=== PATIENT | male | born 1960 | race Two or more races ===

== ENCOUNTER 2020-05-28 09:53 | Inpatient (IN) | payer MEDICAID ==
[~2020-05-28] VITALS: Ht 177.8 cm; Wt 128.8 kg
[~2020-05-28 09:53] MED LIST: CHOL200031 PO; HYDR-4833 PO; LISI-648 PO
[2020-05-28 11:05] LABS: Basophils # (auto) 0 10 ^3/uL (0-0.2); Basophils % (auto) 0.3 % (0.0-2.0); Eosinophils # (auto) 0 10 ^3/uL (0-0.8); Eosinophils % (auto) 0.1 % (0.0-7.0); Hematocrit 48.9 % (41.0-53.0); Hemoglobin 16.3 g/dL (13.5-17.5); Lymphocytes # (auto) 1.1 10 ^3/uL (0.4-5.4); Lymphocytes % (auto) 20.9 % (10.0-50.0); Mean Corpuscular Hgb Conc. 33.2 g/dL (32.0-36.0); Mean Corpuscular Volume 84.2 fL (80.0-100.0); Monocytes # (auto) 0.6 10 ^3/uL (0-1.3); Monocytes % (auto) 11.3 % (0.0-12.0); Neutrophils # (auto) 3.5 10 ^3/uL (1.6-8.6); Neutrophils % (auto) 67.4 % (37.0-80.0); Nucleated Red Blood Cells % 0.2 %; Platelet Count (auto) 169 10^3/uL (140-450); Red Blood Cells 5.81 10^6/uL (4.5-5.90); White Blood Cell 5.2 10^3/uL (4.4-10.8)
[2020-05-28 11:39] LABS: Anion Gap 9 (5-15); Carbon Dioxide 24 mmol/L (21-32); Chloride 96 mmol/L (98-107); Glucose 91 mg/dL (74-106); Potassium 4.3 mmol/L (3.5-5.1); Sodium 129 mmol/L (136-145)
[2020-05-28 11:40] LABS: Alanine Aminotransferase 37 U/L (16-61); Albumin 3.3 g/dL (3.4-5.0); Alkaline Phosphatase 103 U/L (45-117); Aspartate Aminotransferase 37 U/L (15-37); BUN/Creatinine Ratio 18.7; Bilirubin, Total 0.7 mg/dL (0.2-1.0); Blood Urea Nitrogen 17 mg/dL (7-18); Calcium 8.7 mg/dL (8.5-10.1); GFR African American 109 mL/min; GFR Non-African American 90 mL/min; Total Protein 8.9 g/dL (6.4-8.2)
[2020-05-29] MEDS ORDERED: ONDANSETRON HCL 4 MG/2 ML VIAL IV PRN (06:15)
[2020-05-29] MEDS ORDERED: NITROGLYCERIN 0.4 MG SL TAB SL PRN (06:15)
[2020-05-29] MEDS ORDERED: ACETAMINOPHEN 325 MG TAB PO PRN (06:15)
[2020-05-29] MEDS ORDERED: MORPHINE SULF INJ 2 MG/ML SYRINGE 1ML IV PRN (06:15)
[2020-05-29] MEDS ORDERED: REMDESIVIR PER PHARMACY IV SCH (07:45)
[2020-05-29] MEDS ORDERED: ENOXAPARIN SOD 40 MG/0.4 ML SYRINGE SC SCH (10:00)
[2020-05-29] MEDS: DexAMETHasone SOD PHOS 10MG/1ML VIAL INJ IV SCH (10:00)
[2020-05-29] MEDS: cefTRIAXone 1GM/50ML D5W 50 ML IV SCH (10:00)
[2020-05-29] MEDS: AZITHROMYCIN 500MG/ 250ML 250 ML IV SCH (10:00)
[2020-05-29] MEDS: ZINC SULFATE 220mg CAP or TAB PO SCH (10:42)
[2020-05-29] MEDS: ASCORBIC ACID 500 MG TAB PO SCH (10:42)
[2020-05-29] MEDS: ASPirin 81 mg TAB PO SCH (10:42)
[2020-05-29] MEDS: FAMOTIDINE (10MG/ML) 2ML VL IV SCH ×2 (10:42→23:00)
[2020-05-29] MEDS: LISINOPRIL 10 MG TAB PO SCH (10:43)
[2020-05-29] MEDS: HYDROcodone-ACET 5/325MG TAB PO SCH ×2 (13:57→23:00)
[2020-05-29] MEDS ORDERED: REMDESIVIR 200 MG in NS 210ml LOADING DOSE ADULT IV ONE (17:00)
[2020-05-29] MEDS: ALBUTEROL SULF HFA 90MCG INH 200DOSE IN PRN (20:27)
[2020-05-30 04:39] VITALS: BP 127/69
[2020-05-30 05:00] VITALS: BP 127/69
[2020-05-30] MEDS: HYDROcodone-ACET 5/325MG TAB PO SCH ×3 (05:47→21:55)
[2020-05-30] MEDS: BUDESONIDE (INHALATION) 180 MCG IH IN SCH ×2 (06:25→21:52)
--- NOTE | 2020-05-30 06:42 | NUR ---
END OF SHIFT NOTES WILL ENDORSE CARE TO DAY SHIFT RN ,NO S/S OF DISTRESS OR SOB
[2020-05-30 08:51] VITALS: BP 133/72
[2020-05-30] MEDS: ALBUTEROL SULF HFA 90MCG INH 200DOSE IN PRN ×2 (09:06→21:52)
[2020-05-30] MEDS: AZITHROMYCIN 500MG/ 250ML 250 ML IV SCH (10:00)
[2020-05-30] MEDS: ASCORBIC ACID 500 MG TAB PO SCH (10:00)
[2020-05-30] MEDS: DexAMETHasone SOD PHOS 10MG/1ML VIAL INJ IV SCH (10:57)
[2020-05-30] MEDS: ASPirin 81 mg TAB PO SCH (10:58)
[2020-05-30] MEDS: cefTRIAXone 1GM/50ML D5W 50 ML IV SCH (10:58)
[2020-05-30] MEDS: ZINC SULFATE 220mg CAP or TAB PO SCH (10:58)
[2020-05-30] MEDS: FAMOTIDINE (10MG/ML) 2ML VL IV SCH ×2 (10:58→21:44)
[2020-05-30] MEDS: ENOXAPARIN SOD 40 MG/0.4 ML SYRINGE SC SCH (10:59)
[2020-05-30] MEDS: LISINOPRIL 10 MG TAB PO SCH (10:59)
[2020-05-30 11:45] LABS: Basophils # (auto) 0 10 ^3/uL (0-0.2); Eosinophils # (auto) 0 10 ^3/uL (0-0.8); Hematocrit 46.6 % (41.0-53.0); Hemoglobin 15.7 g/dL (13.5-17.5); Lymphocytes # (auto) 0.8 10 ^3/uL (0.4-5.4); Lymphocytes % (auto) 17.5 % (10.0-50.0); Mean Corpuscular Hemoglobin 27.8 pg (28.0-32.0); Mean Corpuscular Hgb Conc. 33.7 g/dL (32.0-36.0); Mean Corpuscular Volume 82.6 fL (80.0-100.0); Monocytes # (auto) 0.5 10 ^3/uL (0-1.3); Monocytes % (auto) 10.6 % (0.0-12.0); Neutrophils # (auto) 3.1 10 ^3/uL (1.6-8.6); Neutrophils % (auto) 70.9 % (37.0-80.0); Nucleated Red Blood Cells % 0.2 %; Platelet Count (auto) 230 10^3/uL (140-450); Red Blood Cells 5.65 10^6/uL (4.5-5.90); Red Cell Distribution Width 13.6 % (11.8-14.3); White Blood Cell 4.4 10^3/uL (4.4-10.8)
--- NOTE | 2020-05-30 12:00 | NUR ---
Called Pharmacy Called Pharmacy regarding Zithromax, bethany Marquis, will send up med.
[2020-05-30 12:04] LABS: Calcium 9.3 mg/dL (8.5-10.1); Potassium 3.9 mmol/L (3.5-5.1)
[2020-05-30 12:14] LABS: Bilirubin, Total 0.4 mg/dL (0.2-1.0); CRP High Sensitivity 5.44 mg/dL (< 0.3); Total Protein 8.3 g/dL (6.4-8.2)
[2020-05-30 12:41] LABS: Urine Bacteria NONE SEEN /hpf (None Seen); Urine Blood Negative /uL (Negative); Urine Mucus FEW (None Seen); Urine Specific Gravity 1.021 (1.001-1.035); Urine WBC 1 /hpf (0 - 3)
[2020-05-30 12:56] VITALS: BP_SYST 115; BP_SYST 128; BP_DIAS 71; BP_DIAS 74
[2020-05-30 16:43] VITALS: BP 128/76
[2020-05-30] MEDS ORDERED: REMDESIVIR 100 MG in SODIUM CHL 0.9% 250 ML IV SCH (17:00)
--- NOTE | 2020-05-30 19:11 | NUR ---
Closing Shift Note Endorsed care to Jodi BURRIS. Endorsed Remdesivir administration due to medication arriving at 1857.
--- NOTE | 2020-05-30 19:20 | NUR ---
Opening shift note Assumed care of patient from day shift RNQiana. Was informed of medication that had arrived late for patient, will administer per EMAR. Patient A&Ox4, respirations even and non-labored without s/s of distress at this time. VS: DE 79, 128/75, RR 20, 94% O2 saturation. Discussed POC with patient who verbalized understanding. Safety precautions in placed, bed in lowest locked position with 2 side rails up. Call light within reach. Will continue to monitor Q1hr and PRN.
--- NOTE | 2020-05-30 21:45 | NUR ---
Remdesivir infused VS: T 97.7, MA 75, RR 20, 92%, 130/73. Patient without s/s of distress at this time.
[2020-05-30 22:00] VITALS: BP 130/73
[2020-05-31 05:00] VITALS: BP 134/74
[2020-05-31 05:42] LABS: Basophils # (auto) 0 10 ^3/uL (0-0.2); Basophils % (auto) 0.4 % (0.0-2.0); Eosinophils # (auto) 0 10 ^3/uL (0-0.8); Hematocrit 45.2 % (41.0-53.0); Hemoglobin 15.4 g/dL (13.5-17.5); Lymphocytes # (auto) 0.7 10 ^3/uL (0.4-5.4); Lymphocytes % (auto) 10.1 % (10.0-50.0); Mean Corpuscular Hemoglobin 27.8 pg (28.0-32.0); Mean Corpuscular Volume 81.9 fL (80.0-100.0); Monocytes # (auto) 0.6 10 ^3/uL (0-1.3); Monocytes % (auto) 8.5 % (0.0-12.0); Neutrophils # (auto) 5.4 10 ^3/uL (1.6-8.6); Nucleated Red Blood Cells % 0.5 %; Platelet Count (auto) 222 10^3/uL (140-450); Red Blood Cells 5.52 10^6/uL (4.5-5.90); Red Cell Distribution Width 13.8 % (11.8-14.3); White Blood Cell 6.7 10^3/uL (4.4-10.8)
[2020-05-31] MEDS: HYDROcodone-ACET 5/325MG TAB PO SCH ×2 (06:00→14:00)
[2020-05-31 06:02] LABS: Potassium 4.4 mmol/L (3.5-5.1)
[2020-05-31 06:14] LABS: BUN/Creatinine Ratio 26.1; Bilirubin, Total 0.4 mg/dL (0.2-1.0); CRP High Sensitivity 2.16 mg/dL (< 0.3); Total Protein 7.9 g/dL (6.4-8.2)
--- NOTE | 2020-05-31 07:16 | NUR ---
Opening Shift Note Assumed patient care from NOC RNJodi. Safety precautions in place, no signs of distress at this time. Will continue to monitor q1hr and PRN.
--- NOTE | 2020-05-31 07:38 | NUR ---
Closing shift note Patient resting without s/s of distress at this time. Endorsed care to day shift RNQiana.
[2020-05-31 09:00] VITALS: BP 126/76
[2020-05-31] MEDS: DexAMETHasone SOD PHOS 10MG/1ML VIAL INJ IV SCH (09:46)
[2020-05-31] MEDS: FAMOTIDINE (10MG/ML) 2ML VL IV SCH (09:46)
[2020-05-31] MEDS: ASPirin 81 mg TAB PO SCH (09:52)
[2020-05-31] MEDS: cefTRIAXone 1GM/50ML D5W 50 ML IV SCH (09:52)
[2020-05-31] MEDS: ZINC SULFATE 220mg CAP or TAB PO SCH (09:52)
[2020-05-31] MEDS: ENOXAPARIN SOD 40 MG/0.4 ML SYRINGE SC SCH (09:53)
[2020-05-31] MEDS: LISINOPRIL 10 MG TAB PO SCH (09:53)
[2020-05-31] MEDS: ASCORBIC ACID 500 MG TAB PO SCH (09:53)
--- NOTE | 2020-05-31 10:40 | NUR ---
Patient Patient at station requesting to be discharged. Per Patient, would like to be discharged with discharge packet prescriptions at this time. Patient made aware that discharge orders have not been placed at this time and he would have to wait for MD to place orders and home medications. Patient verbalized understanding but is insists on being discharged as early as possible.
[2020-05-31] MEDS: AZITHROMYCIN 500MG/ 250ML 250 ML IV SCH (11:00)
--- NOTE | 2020-05-31 11:15 | NUR ---
Nutrition Assessment Est energy needs 4764-2025 kcal (11-14 kcal/kg BW 128.8kg) Est protein needs 75-98g (1-1.3g/kg IBW 75g) Will monitor and reassess prn. Addendum: 05/31/20 at [address] Amended: Links added.
[2020-05-31] MEDS ORDERED: ZINC100T5 PO (11:24)
[2020-05-31] MEDS ORDERED: FAMO20TA10 PO (11:24)
[2020-05-31] MEDS ORDERED: AZIT500T66 PO (11:24)
[2020-05-31] MEDS ORDERED: ALBUAER3 IN (11:24)
[2020-05-31] MEDS ORDERED: ASPI81CH43 PO (11:24)
[2020-05-31] MEDS ORDERED: CHOL200031 PO (11:24)
[2020-05-31] MEDS ORDERED: PRED20TA2 PO (11:24)
--- NOTE | 2020-05-31 11:30 | NUR ---
Called Received call from Dr. Cano. updated on patient status; notified that patient is currently 96% on room air and is denying shortness of breath on exertion. Per Dr. Cano, patient to be discharged after one more dose of Remdesivir. Addendum: 05/31/20 at 1154 by KEVIN GARCIA RN RN Dr. Cano aware of patient discharge request.
[2020-05-31 12:01] VITALS: BP 126/76
[2020-05-31] MEDS ORDERED: REMDESIVIR 100 MG in SODIUM CHL 0.9% 250 ML IV SCH (12:30)
--- NOTE | 2020-05-31 12:50 | NUR ---
Remdesivir Medication Administered Starting BP 143/79 HR 71 15 minute Reassessment 139/80 HR 71 End: 138/81 HR 74
[2020-05-31 13:00] VITALS: BP 131/76
--- NOTE | 2020-05-31 15:00 | NUR ---
Discharge Discharge instructions given as ordered. Encourage to follow up with PMD as instructed. All questions and concerns addressed. Patient verbalized understanding. Medication reconciliation form completed and copy given to patient. IV removed with catheter intact, pressure dressing applied. Patient taken to vehicle via wheelchair with all personal belongings, accompanied by staff. No distress noted at time of departure. Patient discharged with all discharge packets and instructions including information for prescription strip picker. Patient verbalized understanding of all teaching.
== END 2020-05-31 15:00 | disposition home or self-care (01) | DRG 137 ==
LOC: ER 09:53 → OVERFLOW 09:54 → CENTRAL 05-30 04:23
PROVIDERS: ADMIT Internal Medicine; ATTEND Internal Medicine
PROC: XW033E5 Introduction of Remdesivir Anti-infective into Peripheral Vein, Percutaneous Approach, New Technology Group 5 (ICD-10-PCS; principal; 2020-05-29)
DX: U07.1 COVID-19 (principal); J96.01 Acute respiratory failure with hypoxia; J12.89 Other viral pneumonia; J44.9 Chronic obstructive pulmonary disease, unspecified; I10 Essential (primary) hypertension; J91.8 Pleural effusion in other conditions classified elsewhere; E66.01 Morbid (severe) obesity due to excess calories; F17.210 Nicotine dependence, cigarettes, uncomplicated; Z68.41 Body mass index [BMI] 40.0-44.9, adult; Z82.49 Family history of ischemic heart disease and other diseases of the circulatory system; J40 Bronchitis, not specified as acute or chronic
CPT/HCPCS: 36415; 36600; 71045; 71046; 80053; 81001; 82728; 82805; 85025; 85379; 86141; 87426; 93970; 94640; G0378; J0696; J1100; J3490

== ENCOUNTER → 2020-10-28 | Outpatient (CLI) | payer MEDICAID ==
[~2020-10-28] MED LIST changes: +ALBUAER3 IN; +ASPI81CH43 PO; +AZIT500T66 PO; +FAMO20TA10 PO; -LISI-648 PO; +LISI-716 PO; +PRED20TA2 PO; +ZINC100T5 PO
== END | disposition home or self-care (01) ==
LOC: LAB 10:44
PROVIDERS: ATTEND Internal Medicine Pulmonary Disease
DX: Z01.812 Encounter for preprocedural laboratory examination (principal); Z20.822 Contact with and (suspected) exposure to COVID-19
CPT/HCPCS: 36415; 87426

== ENCOUNTER 2020-10-29 10:00 | Outpatient (CLI) | payer MEDICAID ==
[2020-10-29] MEDS ORDERED: ALBUTEROL SULF 2.5 MG/0.5ML(0.5%) NEB SOLN ONE (10:08)
== END 2020-10-29 11:30 | disposition home or self-care (01) ==
LOC: RT 10:00
PROVIDERS: ATTEND Internal Medicine Pulmonary Disease
DX: J44.9 Chronic obstructive pulmonary disease, unspecified (principal); J98.8 Other specified respiratory disorders
CPT/HCPCS: 94060; 94727; 94729

== ENCOUNTER 2022-08-27 12:13 | Inpatient (IN) | payer MEDICAID ==
[~2022-08-27] VITALS: Ht 180.3 cm; Wt 147.1 kg
[2022-08-27] MEDS ORDERED: IPRATROPIUM BROM 0.5 MG/2.5ML INH SOL HHN ONE (13:15)
[2022-08-27] MEDS ORDERED: methylPREDNISolone SOD SUCC 125 MG/2 ML VL IV ONE (13:15)
[2022-08-27] MEDS ORDERED: ALBUTEROL SULF 2.5 MG/0.5ML(0.5%) NEB SOLN HHN ONE (13:15)
[2022-08-27] MEDS ORDERED: ALBUTEROL MEDNEB 2.5 mg/3ml NEB ONE ×2 (13:16→13:17)
[2022-08-27] MEDS ORDERED: IPRATROPIUM BROM 0.5 MG/2.5ML INH SOL ONE (13:17)
[2022-08-27 14:08] LABS: Basophils # (auto) 0 10 ^3/uL (0-0.2); Basophils % (auto) 0.2 % (0.0-2.0); Eosinophils # (auto) 0.1 10 ^3/uL (0-0.8); Eosinophils % (auto) 0.6 % (0.0-7.0); Hematocrit 44.8 % (41.0-53.0); Hemoglobin 15.1 g/dL (13.5-17.5); Lymphocytes # (auto) 1.3 10 ^3/uL (0.4-5.4); Lymphocytes % (auto) 11.4 % (10.0-50.0); Mean Corpuscular Hemoglobin 27.6 pg (28.0-32.0); Mean Corpuscular Hgb Conc. 33.6 g/dL (32.0-36.0); Monocytes # (auto) 0.8 10 ^3/uL (0-1.3); Monocytes % (auto) 7.1 % (0.0-12.0); Neutrophils # (auto) 9.3 10 ^3/uL (1.6-8.6); Neutrophils % (auto) 80.7 % (37.0-80.0); Nucleated Red Blood Cells % 0.2 %; Red Blood Cells 5.47 10^6/uL (4.5-5.90); Red Cell Distribution Width 14.3 % (11.8-14.3); White Blood Cell 11.5 10^3/uL (4.4-10.8)
[2022-08-27 14:27] LABS: Albumin 3.5 g/dL (3.4-5.0); Calcium 8.7 mg/dL (8.5-10.1); Magnesium 2.2 mg/dL (1.6-2.6)
[2022-08-27] MEDS ORDERED: FUROSEMIDE 40 MG/4 ML VIAL IV ONE (14:30)
[2022-08-27 14:31] LABS: Bilirubin, Total 0.6 mg/dL (0.2-1.0); Total Protein 7.1 g/dL (6.4-8.2)
[2022-08-27 15:48] LABS: BUN/Creatinine Ratio 16.4
[2022-08-27] MEDS ORDERED: NITROGLYCERIN 0.4 MG SL TAB SL PRN (19:15)
[2022-08-27] MEDS ORDERED: HYDROcodone-ACET 5/325MG TAB PO PRN (19:15)
[2022-08-27] MEDS ORDERED: DOCUSATE SOD 100 MG CAP PO PRN (19:15)
[2022-08-27] MEDS ORDERED: ACETAMINOPHEN 325 MG TAB PO PRN (19:15)
[2022-08-27] MEDS ORDERED: ONDANSETRON HCL 4 MG/2 ML VIAL IV PRN (19:15)
[2022-08-27] MEDS ORDERED: ALBUTEROL SULF 2.5 MG/0.5ML(0.5%) NEB SOLN NEB PRN (19:15)
[2022-08-27] MEDS ORDERED: MORPHINE SULFATE INJ 2 MG/ml SYRG IV PRN (19:15)
[2022-08-27] MEDS ORDERED: ALBUTEROL SULF HFA 90MCG INH 200DOSE IN PRN (19:15)
[2022-08-27] MEDS ORDERED: IPRATROPIUM BROM 0.5 MG/2.5ML INH SOL NEB PRN (19:15)
[2022-08-27] MEDS: methylPREDNISolone SOD SUCC 40 MG/ML VL IV SCH (22:00)
[2022-08-27 23:01] VITALS: BP 151/85
[2022-08-28] MEDS: SODIUM CHLOR 0.9% PF (SALINE LOCK) 10ML VIAL/SYR IV SCH ×4 (03:03→21:23)
[2022-08-28] MEDS: methylPREDNISolone SOD SUCC 40 MG/ML VL IV SCH ×2 (03:03→09:14)
[2022-08-28 05:30] VITALS: BP 122/58
[2022-08-28 07:30] VITALS: BP 131/79
[2022-08-28] MEDS ORDERED: LISI20TA28 PO (08:26)
[2022-08-28] MEDS ORDERED: METH5TAB2 PO (08:26)
[2022-08-28 09:00] VITALS: BP 112/70
[2022-08-28] MEDS: PANTOPRAZOLE 40 MG/10 ML VIAL INJ IV SCH (09:13)
[2022-08-28] MEDS: ASPirin 81 mg TAB PO SCH (09:15)
[2022-08-28] MEDS: FUROSEMIDE 40 MG TAB PO SCH (09:17)
[2022-08-28] MEDS: METHADONE HCL 10 MG TAB PO SCH (09:19)
[2022-08-28] MEDS: CHOLECALCIFEROL (VITD3) 2,000 UNIT CAP/TAB PO SCH (09:20)
[2022-08-28] MEDS: LISINOPRIL 10 MG TAB PO SCH (09:21)
[2022-08-28] MEDS: ZINC GLUCONATE 100 MG PO SCH (09:22)
[2022-08-28 10:21] LABS: Hematocrit 45.3 % (41.0-53.0); Hemoglobin 15.5 g/dL (13.5-17.5); Mean Corpuscular Hemoglobin 28.1 pg (28.0-32.0); Mean Corpuscular Hgb Conc. 34.2 g/dL (32.0-36.0); Mean Corpuscular Volume 82.2 fL (80.0-100.0); Red Blood Cells 5.51 10^6/uL (4.5-5.90); Red Cell Distribution Width 14.2 % (11.8-14.3); White Blood Cell 9.7 10^3/uL (4.4-10.8)
[2022-08-28 10:23] LABS: Band Neutrophils % (manual) 0; Basophils % (manual) 0 (0.0-2.0); Eosinophils % (manual) 0 (0-7); Metamyelocytes % 0; Monocytes % (manual) 0 (0-12); Myelocytes % 0; Promyelocytes % 0
[2022-08-28 10:24] LABS: Blast Cells 0; Reactive Lymphocytes 0
[2022-08-28 10:37] LABS: Albumin 3.3 g/dL (3.4-5.0); Calcium 9.1 mg/dL (8.5-10.1); Potassium 4.2 mmol/L (3.5-5.1)
[2022-08-28 10:42] LABS: Bilirubin, Total 0.5 mg/dL (0.2-1.0); Total Protein 8.2 g/dL (6.4-8.2)
[2022-08-28 11:17] LABS: Lymphocytes % (manual) 7 (10.0-50.0)
[2022-08-28 13:00] VITALS: BP 136/69
[2022-08-28 17:00] VITALS: BP_SYST 117; BP_SYST 124; BP_DIAS 62; BP_DIAS 76
[2022-08-28] MEDS: methylPREDNISolone SOD SUCC 125 MG/2 ML VL IV SCH (21:23)
[2022-08-28 22:00] VITALS: BP 126/67
[2022-08-29 05:00] VITALS: BP 137/75
[2022-08-29] MEDS: SODIUM CHLOR 0.9% PF (SALINE LOCK) 10ML VIAL/SYR IV SCH ×3 (05:30→22:13)
[2022-08-29] MEDS: methylPREDNISolone SOD SUCC 125 MG/2 ML VL IV SCH ×3 (05:30→22:13)
[2022-08-29 07:53] LABS: Urine Bacteria NONE SEEN /hpf (None Seen); Urine Blood Negative /uL (Negative); Urine Mucus FEW (None Seen); Urine Specific Gravity 1.028 (1.001-1.035); Urine WBC <1 /hpf (0 - 3)
[2022-08-29 09:00] VITALS: BP 127/66
[2022-08-29] MEDS: ZINC GLUCONATE 100 MG PO SCH (10:00)
[2022-08-29] MEDS: ASPirin 81 mg TAB PO SCH (10:58)
[2022-08-29] MEDS: PANTOPRAZOLE 40 MG/10 ML VIAL INJ IV SCH (10:58)
[2022-08-29] MEDS: FUROSEMIDE 40 MG TAB PO SCH (10:59)
[2022-08-29] MEDS: CHOLECALCIFEROL (VITD3) 2,000 UNIT CAP/TAB PO SCH (11:01)
[2022-08-29] MEDS: METHADONE HCL 10 MG TAB PO SCH (11:01)
[2022-08-29] MEDS: LISINOPRIL 10 MG TAB PO SCH (11:02)
[2022-08-29 13:01] VITALS: BP 141/79
[2022-08-29] MEDS: IPRATROPIUM BROM 0.5 MG/2.5ML INH SOL NEB SCH ×3 (14:33→22:48)
[2022-08-29] MEDS: ALBUTEROL SULF 2.5 MG/0.5ML(0.5%) NEB SOLN NEB SCH ×3 (14:33→22:48)
[2022-08-29 17:00] VITALS: BP 156/75
[2022-08-29 22:00] VITALS: BP 121/68
[2022-08-30 05:00] VITALS: BP 114/57
[2022-08-30] MEDS: methylPREDNISolone SOD SUCC 125 MG/2 ML VL IV SCH ×2 (06:03→14:00)
[2022-08-30] MEDS: SODIUM CHLOR 0.9% PF (SALINE LOCK) 10ML VIAL/SYR IV SCH ×2 (06:07→14:00)
[2022-08-30] MEDS ORDERED: DEXTROSE (50%) 50ML SYRG IV PRN (06:30)
[2022-08-30] MEDS: ALBUTEROL SULF 2.5 MG/0.5ML(0.5%) NEB SOLN NEB SCH ×3 (06:46→14:45)
[2022-08-30] MEDS: IPRATROPIUM BROM 0.5 MG/2.5ML INH SOL NEB SCH ×3 (06:46→14:45)
[2022-08-30] MEDS: InsuLIN REG 1unit/0.01ml Soln (100units/ml) SC SCH ×2 (06:54→11:30)
[2022-08-30] MEDS: ACCU-CHEK COMFORT CURVE STRIP VI SCH ×2 (07:12→11:29)
[2022-08-30 07:55] LABS: BUN/Creatinine Ratio 26.8; Calcium 9.2 mg/dL (8.5-10.1); Potassium 4.5 mmol/L (3.5-5.1)
[2022-08-30 08:00] VITALS: BP 150/82
[2022-08-30] MEDS: ZINC GLUCONATE 100 MG PO SCH (09:00)
[2022-08-30] MEDS: ASPirin 81 mg TAB PO SCH (09:02)
[2022-08-30] MEDS: PANTOPRAZOLE 40 MG/10 ML VIAL INJ IV SCH (09:02)
[2022-08-30] MEDS: CHOLECALCIFEROL (VITD3) 2,000 UNIT CAP/TAB PO SCH (09:02)
[2022-08-30] MEDS: FUROSEMIDE 40 MG TAB PO SCH (09:03)
[2022-08-30] MEDS: LISINOPRIL 10 MG TAB PO SCH (09:03)
[2022-08-30] MEDS: METHADONE HCL 10 MG TAB PO SCH (09:04)
[2022-08-30 12:00] VITALS: BP 155/91
[2022-08-30] MEDS ORDERED: METH4PAK PO (12:39)
[2022-08-30] MEDS ORDERED: ALBUAER3 IN (12:39)
[2022-08-30] MEDS ORDERED: ALB5IS NEB (12:39)
[2022-08-30] MEDS ORDERED: DOXY-332 PO (12:39)
[2022-08-30] MEDS ORDERED: IPR002IS NEB (12:39)
== END 2022-08-30 15:45 | disposition home or self-care (01) | DRG 140 ==
LOC: ER 12:13 → TELE 19:15 → TELE-EAST 08-28 08:00
PROVIDERS: ADMIT Nurse Practitioner Family; ATTEND Internal Medicine
DX: J44.1 Chronic obstructive pulmonary disease with (acute) exacerbation (principal); E87.70 Fluid overload, unspecified; G89.4 Chronic pain syndrome; I10 Essential (primary) hypertension; Z20.822 Contact with and (suspected) exposure to COVID-19; R09.89 Other specified symptoms and signs involving the circulatory and respiratory systems; Z82.49 Family history of ischemic heart disease and other diseases of the circulatory system; Z87.891 Personal history of nicotine dependence; Z90.49 Acquired absence of other specified parts of digestive tract
CPT/HCPCS: 36415; 71046; 80048; 80053; 81001; 82962; 83605; 83735; 83880; 84484; 85007; 85025; 85027; 85379; 87040; 87426; 94640; 94644; 96374; 96375; C9113; G0378; J1815

== ENCOUNTER 2022-09-12 10:29 | Inpatient (IN) | payer MEDICAID ==
[~2022-09-12] VITALS: Ht 180.3 cm; Wt 76.0 kg
[~2022-09-12 10:29] MED LIST changes: +ALB5IS NEB; -AZIT500T66 PO; +DOXY-332 PO; +IPR002IS NEB; -LISI-716 PO; +LISI20TA28 PO; +METH4PAK PO; +METH5TAB2 PO; -PRED20TA2 PO
[2022-09-12] MEDS ORDERED: HYDROcodone-ACET 10/325MG TAB PO ONE (10:45)
[2022-09-12 11:31] LABS: Basophils # (auto) 0.1 10 ^3/uL (0-0.2); Basophils % (auto) 0.8 % (0.0-2.0); Eosinophils # (auto) 0.1 10 ^3/uL (0-0.8); Eosinophils % (auto) 0.7 % (0.0-7.0); Hematocrit 44.5 % (41.0-53.0); Hemoglobin 14.9 g/dL (13.5-17.5); Lymphocytes # (auto) 1.8 10 ^3/uL (0.4-5.4); Lymphocytes % (auto) 23.7 % (10.0-50.0); Mean Corpuscular Hemoglobin 27.8 pg (28.0-32.0); Mean Corpuscular Hgb Conc. 33.5 g/dL (32.0-36.0); Monocytes # (auto) 0.6 10 ^3/uL (0-1.3); Monocytes % (auto) 7.4 % (0.0-12.0); Neutrophils # (auto) 5.3 10 ^3/uL (1.6-8.6); Neutrophils % (auto) 67.4 % (37.0-80.0); Nucleated Red Blood Cells % 0.1 %; Red Blood Cells 5.36 10^6/uL (4.5-5.90); White Blood Cell 7.8 10^3/uL (4.4-10.8)
[2022-09-12 11:44] LABS: Urine WBC None Seen /hpf (0 - 3)
[2022-09-12 11:55] LABS: Urine Bacteria NONE SEEN /hpf (None Seen); Urine Blood Negative /uL (Negative); Urine Mucus FEW (None Seen); Urine Specific Gravity 1.023 (1.001-1.035)
[2022-09-12] MEDS ORDERED: SODIUM CHLORIDE 0.9% 1,000 ML IV ONE (12:00)
[2022-09-12 12:08] LABS: Potassium 3.9 mmol/L (3.5-5.1)
[2022-09-12 12:17] LABS: Albumin 2.9 g/dL (3.4-5.0); BUN/Creatinine Ratio 20.7; Bilirubin, Total 0.6 mg/dL (0.2-1.0); Calcium 8.6 mg/dL (8.5-10.1); Total Protein 6.8 g/dL (6.4-8.2)
[2022-09-12] MEDS ORDERED: ONDANSETRON HCL 4 MG/2 ML VIAL IV PRN (15:30)
[2022-09-12] MEDS ORDERED: NITROGLYCERIN 0.4 MG SL TAB SL PRN (15:30)
[2022-09-12] MEDS ORDERED: ACETAMINOPHEN 325 MG TAB PO PRN (15:30)
[2022-09-12] MEDS ORDERED: HYDROcodone-ACET 5/325MG TAB PO PRN (15:30)
[2022-09-12] MEDS ORDERED: MORPHINE SULFATE INJ 2 MG/ml SYRG IV PRN ×2 (15:30)
[2022-09-12] MEDS ORDERED: hydrALAZINE HCL 20 MG/ML VL IV PRN (15:45)
[2022-09-12] MEDS ORDERED: ALBUTEROL SULF 2.5 MG/0.5ML(0.5%) NEB SOLN NEB PRN (15:45)
[2022-09-12] MEDS ORDERED: PANTOPRAZOLE 40 MG/10 ML VIAL INJ IV ONE (15:45)
[2022-09-12] MEDS ORDERED: IPRATROPIUM BROM 0.5 MG/2.5ML INH SOL NEB PRN (15:45)
[2022-09-12 16:11] LABS: Cholesterol 168 mg/dL (< 200)
[2022-09-12 16:14] LABS: HDL Cholesterol 44 mg/dL (40-59); LDL Cholesterol 107 mg/dL (< 100); Triglycerides 135 mg/dL (< 150)
[2022-09-12] MEDS ORDERED: BENZOCAINE (DENTAL) 20 % SPRAY 60ML MT ONE (17:51)
[2022-09-12] MEDS: ALBUTEROL SULF 2.5 MG/0.5ML(0.5%) NEB SOLN NEB SCH (18:40)
[2022-09-12] MEDS: IPRATROPIUM BROM 0.5 MG/2.5ML INH SOL NEB SCH (18:40)
[2022-09-12 20:47] VITALS: BP 147/77
[2022-09-12 22:30] VITALS: BP 113/68
[2022-09-12] MEDS: LACTATED RINGER'S 1,000 ML IV SCH (23:35)
[2022-09-13] MEDS: LACTATED RINGER'S 1,000 ML IV SCH ×2 (01:45→14:15)
[2022-09-13 05:00] VITALS: BP 133/77
[2022-09-13] MEDS: IPRATROPIUM BROM 0.5 MG/2.5ML INH SOL NEB SCH ×3 (05:53→19:03)
[2022-09-13] MEDS: ALBUTEROL SULF 2.5 MG/0.5ML(0.5%) NEB SOLN NEB SCH ×3 (05:53→19:02)
[2022-09-13 06:54] LABS: Basophils # (auto) 0 10 ^3/uL (0-0.2); Basophils % (auto) 0.6 % (0.0-2.0); Eosinophils # (auto) 0 10 ^3/uL (0-0.8); Eosinophils % (auto) 0.9 % (0.0-7.0); Hematocrit 37.7 % (41.0-53.0); Hemoglobin 12.5 g/dL (13.5-17.5); Lymphocytes # (auto) 1.4 10 ^3/uL (0.4-5.4); Lymphocytes % (auto) 29.7 % (10.0-50.0); Mean Corpuscular Hemoglobin 27.6 pg (28.0-32.0); Mean Corpuscular Hgb Conc. 33.2 g/dL (32.0-36.0); Mean Corpuscular Volume 83.3 fL (80.0-100.0); Monocytes # (auto) 0.5 10 ^3/uL (0-1.3); Monocytes % (auto) 9.4 % (0.0-12.0); Neutrophils # (auto) 2.8 10 ^3/uL (1.6-8.6); Neutrophils % (auto) 59.4 % (37.0-80.0); Red Blood Cells 4.52 10^6/uL (4.5-5.90); Red Cell Distribution Width 14.1 % (11.8-14.3); White Blood Cell 4.8 10^3/uL (4.4-10.8)
[2022-09-13 07:06] LABS: Albumin 2.3 g/dL (3.4-5.0); Calcium 7.9 mg/dL (8.5-10.1); Potassium 3.9 mmol/L (3.5-5.1)
[2022-09-13 07:10] LABS: Bilirubin, Total 0.7 mg/dL (0.2-1.0); Total Protein 5.2 g/dL (6.4-8.2)
[2022-09-13 08:35] VITALS: BP 149/70
[2022-09-13] MEDS: PANTOPRAZOLE 40 MG/10 ML VIAL INJ IV SCH (09:24)
[2022-09-13] MEDS ORDERED: METHADONE HCL PO SCH (10:00)
[2022-09-13] MEDS ORDERED: DEXTROSE (50%) 50ML SYRG IV PRN (12:15)
[2022-09-13 12:50] VITALS: BP 118/64
[2022-09-13] MEDS ORDERED: METHADONE HCL 10 MG TAB PO ONE (13:30)
[2022-09-13] MEDS: LISINOPRIL 20 MG TAB PO SCH (14:14)
[2022-09-13] MEDS ORDERED: OPTISON 3ml Vial for INJ IV ONE (15:09)
[2022-09-13 17:38] VITALS: BP 132/71
[2022-09-13] MEDS: InsuLIN REG 1unit/0.01ml Soln (100units/ml) SC SCH ×2 (18:00→23:56)
[2022-09-13] MEDS: ACCU-CHEK COMFORT CURVE STRIP VI SCH ×2 (18:25→23:56)
[2022-09-13 22:00] VITALS: BP 106/58
[2022-09-14] MEDS: LACTATED RINGER'S 1,000 ML IV SCH (04:55)
[2022-09-14 05:00] VITALS: BP 149/77
[2022-09-14] MEDS: InsuLIN REG 1unit/0.01ml Soln (100units/ml) SC SCH ×2 (06:00→12:00)
[2022-09-14] MEDS: ACCU-CHEK COMFORT CURVE STRIP VI SCH ×2 (06:00→12:07)
[2022-09-14] MEDS: ALBUTEROL SULF 2.5 MG/0.5ML(0.5%) NEB SOLN NEB SCH ×3 (06:37→11:34)
[2022-09-14] MEDS: IPRATROPIUM BROM 0.5 MG/2.5ML INH SOL NEB SCH ×3 (06:38→11:34)
[2022-09-14 06:58] LABS: Anion Gap 7 (5-15); BUN/Creatinine Ratio 13.3 (10.0-20.0); Blood Urea Nitrogen 10 mg/dL (7-18); Calcium 8.3 mg/dL (8.5-10.1); Carbon Dioxide 22 mmol/L (21-32); Chloride 109 mmol/L (98-107); GFR African American 135 mL/min; GFR Non-African American 112 mL/min; Glucose 98 mg/dL (74-106); Potassium 4.5 mmol/L (3.5-5.1); Sodium 138 mmol/L (136-145)
[2022-09-14 08:00] VITALS: BP 102/55
[2022-09-14 08:27] LABS: Basophils # (auto) 0 10 ^3/uL (0-0.2); Basophils % (auto) 0.6 % (0.0-2.0); Eosinophils # (auto) 0.1 10 ^3/uL (0-0.8); Eosinophils % (auto) 1.2 % (0.0-7.0); Hematocrit 39.3 % (41.0-53.0); Hemoglobin 13.1 g/dL (13.5-17.5); Lymphocytes # (auto) 1.4 10 ^3/uL (0.4-5.4); Lymphocytes % (auto) 30.3 % (10.0-50.0); Mean Corpuscular Hemoglobin 27.9 pg (28.0-32.0); Mean Corpuscular Hgb Conc. 33.3 g/dL (32.0-36.0); Mean Corpuscular Volume 83.9 fL (80.0-100.0); Monocytes # (auto) 0.5 10 ^3/uL (0-1.3); Neutrophils # (auto) 2.7 10 ^3/uL (1.6-8.6); Neutrophils % (auto) 56.9 % (37.0-80.0); Nucleated Red Blood Cells % 0.1 %; Red Blood Cells 4.69 10^6/uL (4.5-5.90); Red Cell Distribution Width 14.2 % (11.8-14.3); White Blood Cell 4.7 10^3/uL (4.4-10.8)
[2022-09-14] MEDS ORDERED: FUROSEMIDE 20 MG/2 ML VIAL IV SCH (10:00)
[2022-09-14] MEDS ORDERED: METHADONE HCL 10 MG TAB PO SCH (10:00)
[2022-09-14] MEDS: PANTOPRAZOLE 40 MG/10 ML VIAL INJ IV SCH (10:09)
[2022-09-14] MEDS: LISINOPRIL 20 MG TAB PO SCH (10:10)
[2022-09-14] MEDS ORDERED: DOCU-94 PO (10:55)
[2022-09-14 13:31] VITALS: BP 136/90
== END 2022-09-14 14:05 | disposition home or self-care (01) | DRG 254 ==
LOC: ER 10:29 → OVERFLOW 15:29 → EAST 23:10
PROVIDERS: ADMIT Registered Nurse; ATTEND Internal Medicine
DX: K43.6 Other and unspecified ventral hernia with obstruction, without gangrene (principal); I50.33 Acute on chronic diastolic (congestive) heart failure; E11.9 Type 2 diabetes mellitus without complications; E66.01 Morbid (severe) obesity due to excess calories; I11.0 Hypertensive heart disease with heart failure; J44.9 Chronic obstructive pulmonary disease, unspecified; Z53.29 Procedure and treatment not carried out because of patient's decision for other reasons; Z20.822 Contact with and (suspected) exposure to COVID-19; Z68.23 Body mass index [BMI] 23.0-23.9, adult; Z82.3 Family history of stroke; Z90.49 Acquired absence of other specified parts of digestive tract; Z82.49 Family history of ischemic heart disease and other diseases of the circulatory system; Z87.891 Personal history of nicotine dependence; Z86.16 Personal history of COVID-19; Z71.3 Dietary counseling and surveillance
CPT/HCPCS: 36415; 71045; 74176; 80048; 80053; 80061; 81001; 82962; 83036; 83690; 83735; 83880; 84443; 85025; 87081; 87426; 93306; 94640; C9113; G0378; Q9956

== ENCOUNTER 2022-11-17 08:03 | Emergency (ER) | payer MEDICAID ==
[~2022-11-17] VITALS: Ht 180.3 cm; Wt 149.3 kg
[~2022-11-17 08:03] MED LIST changes: +DOCU-94 PO; -DOXY-332 PO; +DOXY-448 PO; -LISI20TA28 PO; +LISI20TA56 PO
[2022-11-17 08:41] LABS: Basophils # (auto) 0 10 ^3/uL (0-0.2); Basophils % (auto) 0.4 % (0.0-2.0); Eosinophils # (auto) 0.1 10 ^3/uL (0-0.8); Eosinophils % (auto) 2.8 % (0.0-7.0); Hematocrit 40.7 % (41.0-53.0); Hemoglobin 13.6 g/dL (13.5-17.5); Lymphocytes # (auto) 1.4 10 ^3/uL (0.4-5.4); Lymphocytes % (auto) 31.4 % (10.0-50.0); Mean Corpuscular Hemoglobin 27.7 pg (28.0-32.0); Mean Corpuscular Hgb Conc. 33.3 g/dL (32.0-36.0); Mean Corpuscular Volume 83.2 fL (80.0-100.0); Monocytes # (auto) 0.7 10 ^3/uL (0-1.3); Monocytes % (auto) 15.6 % (0.0-12.0); Neutrophils # (auto) 2.2 10 ^3/uL (1.6-8.6); Neutrophils % (auto) 49.8 % (37.0-80.0); Nucleated Red Blood Cells % 0.1 %; Red Cell Distribution Width 15.6 % (11.8-14.3); White Blood Cell 4.4 10^3/uL (4.4-10.8)
[2022-11-17 09:01] LABS: Albumin 3.6 g/dL (3.4-5.0); Calcium 8.1 mg/dL (8.5-10.1); Potassium 3.8 mmol/L (3.5-5.1)
[2022-11-17 09:07] LABS: BUN/Creatinine Ratio 30.8 (10.0-20.0); Bilirubin, Total 0.3 mg/dL (0.2-1.0); Total Protein 6.6 g/dL (6.4-8.2)
[2022-11-17] MEDS ORDERED: IOHEXOL 350 MG/ML 100ML IJ ONE (12:49)
[2022-11-17] MEDS ORDERED: LEVO750T40 PO (14:38)
[2022-11-17 14:51] VITALS: BP 158/86
== END 2022-11-17 14:53 | disposition home or self-care (01) ==
LOC: ER 08:03
DX: J06.9 Acute upper respiratory infection, unspecified (principal); K43.2 Incisional hernia without obstruction or gangrene
CPT/HCPCS: 36415; 71045; 71275; 80053; 83880; 84484; 85025; 85379; 93005; 99285; Q9967

== ENCOUNTER 2022-12-10 09:26 | Emergency (ER) | payer MEDICAID ==
[~2022-12-10] VITALS: Ht 180.3 cm; Wt 146.6 kg
[~2022-12-10 09:26] MED LIST changes: +LEVO750T40 PO
[2022-12-10] MEDS ORDERED: SODIUM CHLORIDE 0.9% 500 ML IV ONE (11:15)
[2022-12-10 11:51] VITALS: BP 133/64
[2022-12-10 11:58] LABS: Urine WBC None Seen /hpf (0 - 3)
[2022-12-10 12:27] LABS: Urine Bacteria NONE SEEN /hpf (None Seen); Urine Blood Negative /uL (Negative); Urine Specific Gravity 1.024 (1.001-1.035)
[2022-12-10 13:08] LABS: Basophils # (auto) 0 10 ^3/uL (0-0.2); Basophils % (auto) 0.4 % (0.0-2.0); Eosinophils # (auto) 0.1 10 ^3/uL (0-0.8); Eosinophils % (auto) 1.6 % (0.0-7.0); Hematocrit 46.3 % (41.0-53.0); Hemoglobin 15.2 g/dL (13.5-17.5); Lymphocytes # (auto) 1.8 10 ^3/uL (0.4-5.4); Lymphocytes % (auto) 24.6 % (10.0-50.0); Mean Corpuscular Hgb Conc. 32.8 g/dL (32.0-36.0); Mean Corpuscular Volume 85.4 fL (80.0-100.0); Monocytes # (auto) 0.8 10 ^3/uL (0-1.3); Monocytes % (auto) 10.3 % (0.0-12.0); Neutrophils # (auto) 4.6 10 ^3/uL (1.6-8.6); Neutrophils % (auto) 63.1 % (37.0-80.0); Nucleated Red Blood Cells % 0.1 %; Red Blood Cells 5.42 10^6/uL (4.5-5.90); Red Cell Distribution Width 15.2 % (11.8-14.3); White Blood Cell 7.3 10^3/uL (4.4-10.8)
[2022-12-10 13:31] LABS: Alanine Aminotransferase 22 U/L (16-61); Alkaline Phosphatase 105 U/L (45-117); Aspartate Aminotransferase 17 U/L (15-37); Bilirubin, Total 0.9 mg/dL (0.2-1.0); Total Protein 7.6 g/dL (6.4-8.2)
[2022-12-10 14:14] LABS: Anion Gap 3 (5-15); Blood Urea Nitrogen 17 mg/dL (7-18); Carbon Dioxide 24 mmol/L (21-32); Chloride 106 mmol/L (98-107); Glucose 86 mg/dL (74-106); Potassium 4.7 mmol/L (3.5-5.1); Sodium 133 mmol/L (136-145)
[2022-12-10 14:15] LABS: Albumin 3.2 g/dL (3.4-5.0); Calcium 8.4 mg/dL (8.5-10.1); GFR African American 137 mL/min; GFR Non-African American 114 mL/min
[2022-12-10] MEDS ORDERED: CLIN300C70 PO (14:29)
== END 2022-12-10 15:35 | disposition home or self-care (01) ==
LOC: ER 09:26
DX: L03.116 Cellulitis of left lower limb (principal); L03.115 Cellulitis of right lower limb; J44.9 Chronic obstructive pulmonary disease, unspecified; I10 Essential (primary) hypertension; Z90.49 Acquired absence of other specified parts of digestive tract; Z87.891 Personal history of nicotine dependence
CPT/HCPCS: 36415; 80053; 81001; 85025; 85652; 93971

== ENCOUNTER 2023-06-17 21:13 | Emergency (ER) | payer MEDICAID ==
[~2023-06-17] VITALS: Ht 180.3 cm; Wt 148.5 kg
[~2023-06-17 21:13] MED LIST changes: +CLIN300C70 PO
[2023-06-17 21:27] VITALS: BP 121/67; PULSE 77; RESP 17; O2SAT 95
[2023-06-18 01:51] LABS: Urine Bacteria NONE SEEN /hpf (None Seen); Urine Blood Negative /uL (Negative); Urine Clarity Clear (Clear); Urine Color Yellow (Yellow); Urine Mucus FEW (None Seen); Urine Protein, UAD Negative (Negative); Urine Specific Gravity 1.031 (1.001-1.035); Urine WBC 2 /hpf (0 - 3); Urine pH 6.5 (5.0-8.0)
[2023-06-18] MEDS ORDERED: PHEN-1045 PO (01:58)
[2023-06-18] MEDS ORDERED: CEPH500C PO (01:58)
== END 2023-06-18 02:30 | disposition home or self-care (01) ==
LOC: ER 21:13
DX: N39.0 Urinary tract infection, site not specified (principal); J44.9 Chronic obstructive pulmonary disease, unspecified; I10 Essential (primary) hypertension; Z90.49 Acquired absence of other specified parts of digestive tract; Z87.891 Personal history of nicotine dependence
CPT/HCPCS: 81001

== ENCOUNTER 2023-06-26 18:45 | Emergency (ER) | payer MEDICAID ==
[~2023-06-26] VITALS: Ht 182.9 cm; Wt 149.3 kg
[~2023-06-26 18:45] MED LIST changes: +CEPH500C PO; +PHEN-1045 PO
[2023-06-26 23:09] VITALS: BP 122/54; PULSE 62; RESP 18; TEMP 98.1; O2SAT 99
== END 2023-06-26 23:14 | disposition home or self-care (01) ==
LOC: ER 18:45
DX: S70.01XA Contusion of right hip, initial encounter (principal); S00.03XA Contusion of scalp, initial encounter; J44.9 Chronic obstructive pulmonary disease, unspecified; I10 Essential (primary) hypertension; Z90.49 Acquired absence of other specified parts of digestive tract; Z87.891 Personal history of nicotine dependence; W18.09XA Striking against other object with subsequent fall, initial encounter; Y93.89 Activity, other specified; Y92.89 Other specified places as the place of occurrence of the external cause; Y99.8 Other external cause status
CPT/HCPCS: 70450; 72125; 73502

== ENCOUNTER 2024-08-01 09:57 | Emergency (ER) | payer OTHER, MEDICAID ==
[~2024-08-01] VITALS: Ht 180.3 cm; Wt 115.4 kg
[~2024-08-01 09:57] MED LIST changes: +CLIN1CAP70 PO; -CLIN300C70 PO; -DOXY-448 PO; +DOXY100C79 PO; +METH5TAB10 PO; -METH5TAB2 PO
[2024-08-01 11:06] VITALS: BP 123/92; PULSE 76; RESP 18; O2SAT 95
--- NOTE | 2024-08-01 11:24 | ED.PDOC ---
[place]. trauma (HPI) HPI Comments Gregorio Neff is a 64-year-old male patient who presents to ED status post mechanical fall with posterior loss of consciousness, presenting probable head, bilateral hip, right knee and left elbow trauma. This occurred this morning while patient was in the methadone clinic, he slipped in the clinic because his cane did not function on the wet floor. Patient does not recall what happened after the fall, and believes he lost consciousness after head trauma and became very dizzy when trying to stand up, prompting his visit to the ED. Denies palpitation, syncope, dyspnea, chest pain, nausea, vomiting, diarrhea, recent travel and motor or sensory deficits. Past medical history: Hypertension, obesity (patient is intentionally losing weight for eventual hernia repair surgery), COPD, obstructive sleep apnea requiring CPAP, questionable CHF (08/2022 LVEF 60-65%), ventral hernia Surgical history: Cholecystectomy requiring reoperation due to bile leakage. Two knee surgeries. Planning to complete right hip surgery in two weeks. Social history: Lives alone in [place], daughter comes visit since she is his caregiver. Quit smoking approximately 20 years ago (10 pack-year history of smoking). Ex heroin abuse, has been on methadone approximately three years ago. Denies current tobacco, alcohol and other drug abuse. Allergies: Denies Home medication: Percocet, methadone, Zepbound, water pill (does not recall what type) Chief Complaint: Fall Injury Time Seen by MD: 10:12 Primary Care Provider: UNKNOWN Allergies: Coded Allergies: NO KNOWN ALLERGIES (Unverified , 01/19/19) Home Meds Active Scripts Phenazopyridine HCl (Phenazopyridine Hydrochol) 200 Mg Tab, 1 TAB PO TID for 3 Days, #9 TAB Prov:GARY IVEY Q SDE 06/18/23 Cephalexin Monohydrate (Cephalexin) 500 Mg Cap, 1 CAP PO QID for 10 Days, #40 CAP Prov:GARY IVEY Q SDE 06/18/23 Clindamycin Hcl (Clindamycin Hcl) 300 Mg Cap, 1 CAP PO TID, #30 CAP Prov:JUSTO HICKS MD 12/10/22 Levofloxacin Hemihydrate (LEVOFLOXACIN) 750 Mg Tab, 1 TAB PO DAILY for 10 Days, #10 TAB Prov:NINA VENTURA MD 11/17/22 Docusate Sodium (Colace) 100 Mg Cap, 100 MG PO BIDP PRN for 30 Days, #50 CAP Prov:NATIVIDAD NG MD 09/14/22 Doxycycline (Monohydrate) (Doxycycline) 100 Mg Cap, 100 MG PO BID, #14 CAP Prov:FARSHAD FLETCHER MD 08/30/22 Methylprednisolone (Medrol Dosepak) 4 Mg Estuardo, 4 MG PO UD, #21 TAB UAD Prov:FARSHAD FLETCHER MD 08/30/22 Ipratropium [place] (Ipratropium [place]) 0.02 % Luiza, 0.5 MG NEB Q4HPRN PRN, #120 ML Prov:FARSHAD FLETCHER MD 08/30/22 Albuterol Sulfate (Ventolin) 2.5 Mg/0.5 Ml Nb, 2.5 MG NEB Q4HPRN PRN, #120 INH Prov:FARSHAD FLETCHER MD 08/30/22 Albuterol Sulfate (VENTOLIN MDI) 90 Mcg Ih, 180 MCG IN TIDPRN PRN, #1 INH Prov:FARSHAD FLETCHER MD 08/30/22 Zinc Gluconate (ZINC) 100 Mg Tab, 100 MG PO DAILY, #10 TAB Prov:FIEDLINA ARTEAGA MD 05/31/20 Famotidine (PEPCID TABLET) 20 Mg Tb, 1 TAB PO BID, #30 TAB Prov:FIDELINA ARTEAGA MD 05/31/20 Aspirin (Asa) 81 Mg Ch, 81 MG PO DAILY, #14 TAB.CHEW Prov:FIDELINA ARTEAGA MD 05/31/20 Cholecalciferol (D3) 2,000 Unit Cap, 2000 UNIT PO DAILY, #14 CAP Prov:FIDELINA ARTEAGA MD 05/31/20 Reported Medications Methadone Hcl (Methadone Hcl) 5 Mg Tab, 45 MG PO DAILY, TAB 08/28/22 Lisinopril (Lisinopril) 20 Mg Tab, 20 MG PO DAILY for 30 Days, MG 08/28/22 Hydrocodone-Acetaminophen ([place] 5/325MG) 1 Tab Tb, 1 TAB PO TID, #90 TAB 02/19/19 Mode of Arrival: Ambulatory Past Medical History PAST MEDICAL HISTORY: COPD, HTN Surgical History: Cholecystectomy, Hernia Repair Family History Family History: Reviewed,noncontributory to illness, Family hx of HTN Social History Smoker: Quit Less Than 1 Year Alcohol: Denies ETOH Use Drugs: Denies Drug Use Lives In: Home Physical Exam General Appearance: Mild Distress, Obese HEENT: Normal ENT Inspection, Pharynx Normal Neck: Full Range of Motion, Non-Tender, Normal, Normal Inspection Respiratory: Chest Non-Tender, Lungs Clear, No Accessory Muscle Use, No Respiratory Distress, Normal Breath Sounds Cardiovascular: No Edema, No JVD, No Murmur, No Gallop, Normal Peripheral Pulses, Regular Rate/Rhythm Breast Exam: Deferred Gastrointestinal: Hernia, Non Tender, No Pulsatile Mass, Normal Bowel Sounds, Soft Genitalia: Deferred Pelvic: Deferred Rectal: Deferred Extremities: Leg edema, No calf tenderness, Normal capillary refill, Normal inspection, Normal range of motion, Non-tender Neurologic: Alert, analysis engineer II-XII nml as Tested, No Motor Deficits, Normal Affect, Normal Mood, No Sensory Deficits Cerebellar Function: Normal Reflexes: Normal Skin: Dry, Normal Color, Warm Lymphatic: No Adenopathy Was a procedure done? Was a procedure done?: No EKG EKG : Comments Normal sinus rhythm at 60 beats per minute, no ST alteration Differential Diagnosis Multiple Trauma: Closed Head Injury, Cerebral Contusion, Contusion, Hematoma, Encephalopathy X-Ray, Labs, Meds, VS Vital Signs Date Time Temp Pulse Resp B/P (MAP) Pulse Ox O2 Delivery O2 Flow Rate FiO2 08/01/24 11:06 98.8 76 18 123/92 (102) 95 X-Ray, Labs, Meds, VS Comment Completed chest, bilateral hip, pelvis right knee and left elbow elbow x-ray, head CT, EKG. Mild right pleural effusion on chest x-ray, rest of workup within normal limits. Laboratory workup pending. Patient has been called multiple times, seems the patient has eloped. Time of 1ST Reevaluation: 13:25 Reevaluation 1ST: Patient may have eloped Patient Education/Counseling: Other (Patient seemed to have eloped) Family Education/Counseling: No Family Present Departure 1 Departure Time of Disposition: 13:25 Impression: Primary Impression: Fall with injury Disposition: LEFT AWOL/ELOPED Condition: Other (Undetermined, pending laboratory workup) Additional Instructions: Verbally discussed with patient imaging finding (only presented mild right pleural effusion on chest x-ray, rest of imaging without acute findings). Discussed with patient that laboratory workup is pending. Staff has called patient in multiple occasion, currently patient is not found and can not complete laboratory workup. Interpret patient has eloped without complete workup. Critical Care Note Critical Care Time?: No Stability Stability form required: No Heart Score Heart Score: Heart Score Response (Comments) Value History N/A 0 EKG N/A 0 Age N/A 0 Risk Factors N/A 0 Troponin N/A 0 Total 0 FIDENCIO SANDHU RESIDENT Aug 01, 2024 11:24
--- NOTE | 2024-08-01 11:47 | DVH ---
XY R KNEE 3V XRAY, INDICATION: Mechanical fall TECHNICAL DATA: Frontal , and lateral views were obtained of the right knee. COMPARISON: None FINDINGS: No fracture is identified. Medial, lateral and patellofemoral compartment joint spaces are degenerati ve. Alignment is anatomic. Soft tissues are within normal limits. No joint effusion is demonstrated. IMPRESSION: No acute fracture or dislocation of the right knee. Moderate right knee DJD.
--- NOTE | 2024-08-01 11:49 | DVH ---
XY L HIP COMPLETE XRAY, INDICATION: Mechanical fall TECHNICAL DATA: Frontal and frog lateral views were obtained of the left hip. COMPARISON: XY R HIP COMPLETE XRAY on DOS: 06/26/23 FINDINGS: The left hip is normally located. The left hip joint is normally maintained with no marginal osteophy ruben. No left hip fracture is identified. The left sacroiliac joint appears normal. IMPRESSION: No left hip fracture seen. Severe right hip degenerative changes.
--- NOTE | 2024-08-01 11:53 | DVH ---
EXAM: CT HEAD WITHOUT CONTRAST HISTORY: MEchanical fall COMPARISON: CT CERVICAL WITHOUT CONTRAST on DOS: 06/26/23, CT HEAD WITHOUT CONTRAST on DOS: 06/26/23 TECHNIQUE: Axial images of the head were obtained and reformatted in coronal and sagittal planes. All CT scans at this medical facility are performed using dose modulation techniques as appropriate t o a performed exam including the following: Automated exposure control was utilized; adjustment of th e MA and/or KV according to patient size; and use of iterative reconstruction technique. CT Dose: CTDI volume is 59 mGy. Dose-length product is 1162 mGy*cm FINDINGS: There is no evidence of acute intracranial hemorrhage, mass, mass effect midline shift. There is no h ydrocephalus or extra-axial fluid collection. Metcalf-white matter differentiation is maintained. The visualized paranasal sinuses and mastoid air cells are clear. The calvarium is intact. IMPRESSION: 1. No acute intracranial process. HS:Y
--- NOTE | 2024-08-01 11:58 | DVH ---
XY CHEST XRAY 1 VIEW, HISTORY: Mechanical fall COMPARISON: XY CHEST PORTABLE on DOS: 11/17/22, XY CHEST PORTABLE on DOS: 09/12/22, CHEST XRAY 1 VIEW o n DOS: 05/31/20 XY CHEST PORTABLE on DOS: 11/17/22, XY CHEST PORTABLE on DOS: 09/12/22, CHEST XRAY 1 VIEW on DOS: TECHNICAL DATA: 1 view of the chest was obtained. FINDINGS: Lines and tubes: None Cardiomediastinal silhouette: normal Pulmonary vasculature: normal Lung expansion: normal Lung airspace: normal Lung interstitium: normal Pleura: Small right pleural effusion. Pneumothorax: no Bones: Unremarkable Other: no IMPRESSION: Small right pleural effusion.
== END 2024-08-01 14:23 | disposition left against medical advice (07) ==
LOC: ER 09:57
DX: R60.0 Localized edema (principal); M25.552 Pain in left hip; M25.551 Pain in right hip; M25.561 Pain in right knee; R51.9 Headache, unspecified; M25.522 Pain in left elbow; I10 Essential (primary) hypertension; J44.9 Chronic obstructive pulmonary disease, unspecified; Z90.49 Acquired absence of other specified parts of digestive tract; Z87.891 Personal history of nicotine dependence; Z79.82 Long term (current) use of aspirin; Z79.899 Other long term (current) drug therapy; Z98.890 Other specified postprocedural states; Z79.2 Long term (current) use of antibiotics; W01.0XXA Fall on same level from slipping, tripping and stumbling without subsequent striking against object, initial encounter; Y93.89 Activity, other specified; Y92.89 Other specified places as the place of occurrence of the external cause; Y99.8 Other external cause status
CPT/HCPCS: 70450; 71045; 73502; 73562

== ENCOUNTER 2025-01-12 13:16 | Emergency (ER) | payer MEDICAID ==
[~2025-01-12] VITALS: Ht 172.7 cm; Wt 100.0 kg
[2025-01-12 13:35] VITALS: BP 129/79; PULSE 77; RESP 18; TEMP 98.8; O2SAT 98
--- NOTE | 2025-01-12 13:37 | ECG ---
[facility] Test Date: 2025-01-12 Test Time: 13:21:36 Pat Name: KLAUDIA DUNN Department: ED Room: Gender: M Room Service Runner: gp : 1960 Requested By: DORETHA NEAL Order Number: [id number] Reading MD: Measurements Intervals [place] Rate: 72 P: 64 TN: 162 QRS: 62 QRSD: 108 T: 35 QT: 446 QTc: 489 Interpretive Statements Sinus rhythm Low voltage, precordial leads Borderline prolonged QT interval Please click the below link to view image of tracing.
== END 2025-01-12 17:25 | disposition left against medical advice (07) ==
LOC: ER 13:16 → EDBD 13:16 → ER 17:25
DX: R53.1 Weakness (principal); Z53.21 Procedure and treatment not carried out due to patient leaving prior to being seen by health care provider
CPT/HCPCS: 93005

== ENCOUNTER 2025-03-06 04:36 | Inpatient (IN) | payer MEDICAID ==
[2025-03-06] VITALS (9 sets, daily range): BP systolic 115–126; BP diastolic 60–76; PULSE 68–77; RESP 17–20; TEMP 97.1–98.1; O2SAT 93–100
[~2025-03-06] VITALS: Ht 177.8 cm; Wt 122.4 kg
[2025-03-06] MEDS ORDERED: ONDANSETRON HCL 4 MG/2 ML VIAL IV PRN (09:15)
[2025-03-06] MEDS ORDERED: HYDROcodone-ACET 5/325MG TAB PO PRN (09:15)
[2025-03-06] MEDS ORDERED: NITROGLYCERIN 0.4 MG SL TAB SL PRN (09:15)
[2025-03-06] MEDS ORDERED: ACETAMINOPHEN 325 MG TAB PO PRN (09:15)
[2025-03-06] MEDS ORDERED: MORPHINE SULFATE INJ 2 MG/ml SYRG IV PRN (09:15)
[2025-03-06] MEDS ORDERED: FURO40TA4 PO (09:28)
[2025-03-06] MEDS ORDERED: SEVE800T10 PO (09:28)
[2025-03-06] MEDS: FUROSEMIDE 40 MG/4 ML VIAL IV ONE (09:30)
--- NOTE | 2025-03-06 09:41 | DVHHP2 ---
History of Present Illness Reason for Visit: Bilateral lower extremtity swelling and pain History of Present Illness Gregorio Neff is a 65-year-old male with past medical history of ESRD on HD M,W,F, COPD, DVT, and chronic pain who was a direct admit from [facility] for bilateral lower extremity cellulitis. Ultrasound of lower extremity completed at [facility] was negative fro DVT. Past Surgical History: Cholecystectomy, Other (SBO August 2024) Smoke: No ALCOHOL: none Drugs: None Lives: with Family Domestic Violence: Neg Review of Systems Constitutional: No: Fever, Chills, Sweats, Weakness, Malaise, Other Eyes: No: Pain, Vision change, Conjunctivae inflammation, Eyelid inflammation, Other, Redness ENT: No: Ear pain, Ear discharge, Nose pain, Nose discharge, Nose congestion, Mouth pain, Mouth swelling, Throat pain, Throat swelling, Other Respiratory: No: Cough, Dry, Shortness of breath, SOB with excertion, Wheezing, Hemoptysis, Pleuritic Pain, Sputum, Wheezing, Other Cardiovascular: Edema (bilateral lower extremities); No: Chest Pain, Palpitations, Orthopnea, Paroxysmal Noc. Dyspnea, Lt Headedness, Other Gastrointestinal: No: Nausea, Vomiting, Abdominal Pain, Diarrhea, Constipation, Melena, Hematochezia, Other Genitourinary: No Dysuria, No Frequency, No Incontinence, No Hematuria, No Retention, No Other Musculoskeletal: leg pain (bilateral lower extremities); No: other, neck pain, shoulder pain, arm pain, back pain, hand pain, foot pain Skin: No: Rash, Lesions, Jaundice, Bruising, Other Neurological: No: Weakness, Numbness, Incoordination, Change in speech, Confusion, Seizures, Other Allergies: Coded Allergies: NO KNOWN ALLERGIES (Unverified , 01/19/19) Medications Current Medications Medications Dose Ordered Sig/Satish Route Start Time Stop Time Status Last Admin Dose Admin Sodium Chloride 10 ml Q8HR IV 03/06/25 14:00 UNV Acetaminophen/ Hydrocodone Bitart 1 tab Q4HP PRN PO 03/06/25 09:15 UNV Ondansetron HCl 4 mg Q4HP PRN IV 03/06/25 09:15 UNV Docusate Sodium 100 mg BIDPRN PRN PO 03/06/25 09:15 UNV Acetaminophen 650 mg Q6HP PRN PO 03/06/25 09:15 UNV Nitroglycerin 0.4 mg Q5MINP PRN SL 03/06/25 09:15 UNV Morphine Sulfate 2 mg Q30M PRN IV 03/06/25 09:15 UNV Aspirin 81 mg DAILY PO 03/06/25 10:00 UNV Patient Own Medication 2,000 unit DAILY PO 03/06/25 10:00 UNV Patient Own Medication 100 mg DAILY PO 03/06/25 10:00 UNV Clindamycin Phosphate 50 ml @ 50 mls/hr Q8HR IV 03/06/25 14:00 UNV Exam Vital Signs Vital Signs Date Time Temp Pulse Resp B/P (MAP) Pulse Ox O2 Delivery O2 Flow Rate FiO2 03/06/25 06:23 97.9 70 18 117/76 (90) 97 97.9 03/06/25 06:23 Room Air* 0 21 General Appearance: Alert, Oriented X3, Cooperative, mild distress HEENT: Atraumatic, PERRLA Respiratory: Clear to auscultation, Normal air movement Cardiovascular: Regular rate, Normal S1, Normal S2 Abdominal: Normal bowel sounds, Soft, No tenderness Extremities: No clubbing, No cyanosis, Other (bilateral lower extremities swelling, redness, and tenderness) Skin: No rashes, No breakdown, No significant lesion Neuro: Normal gait, Normal speech, Strength at 5/5 X4 ext, Normal tone, Sensation intact Psych/Mental Status: Mental status NL, Mood NL Labs/Xrays CBC, CMP, Chest X-ray ordered, awaiting results, SEPSIS Sepsis Screen Physician Orders Regular Diet (03/06/25 Breakfast) Mrsa Screen (03/06/25 09:16) Admit (03/06/25 09:07) Code Status (03/06/25 09:07) Sodium Chloride Lock (Saline Lock Ns) (03/06/25 14:00) Hydrocodone-Acet 5/325mg Tab ([place] 5/32 (03/06/25 09:15) Ondansetron Hcl (Zofran) (03/06/25 09:15) Docusate Sodium Capsule (Colace Capsule) (03/06/25 09:15) Complete Blood Count (03/07/25 04:00) Comprehensive Metabolic Panel (03/07/25 04:00) Condition: Serious (03/06/25 09:07) Acetaminophen Tablet (Tylenol Tablet) (03/06/25 09:15) Nitroglycerin Sublingual (Ntrostat Subli (03/06/25 09:15) Morphine Sulfate Injection (03/06/25 09:15) Stat Ekg For Chest Pain (03/06/25 09:07) Notify Of Changes From Base (03/06/25 09:07) Developer Advocate For 24 Hours (03/06/25 09:07) Emergency Dysrhythmia Protocol (03/06/25 09:07) Rhythm Strips Once Every Shift (03/06/25 09:07) Oxygen By Nasal Cannula (03/06/25 09:07) Complete Blood Count (03/06/25 09:11) Comprehensive Metabolic Panel (03/06/25 09:11) *Dr. Topete [facility] (03/06/25 09:22) Furosemide Injection (Lasix Injection) (03/06/25 09:30) Aspirin Tablet (03/06/25 10:00) (Nf) Cholecalciferol (D3) (03/06/25 10:00) (Nf) Zinc Gluconate (Zinc) (03/06/25 10:00) Clindamycin Ivpb Cleocin (03/06/25 14:00) Vital Signs Date Time Temp Pulse Resp B/P (MAP) Pulse Ox O2 Delivery O2 Flow Rate FiO2 03/06/25 06:23 97.9 70 18 117/76 (90) 97 97.9 03/06/25 06:23 70 18 97 Room Air* 0 21 03/06/25 05:00 97.9 70 18 117/76 (90) 95 97.9 Assessment/Plan Assessment/Plan Assessment: Bilateral lower leg cellulitis, Fluid overload, ESRD on HD, COPD, Plan: Admit to Tele, Nephrology consult, IV antibiosis, IV Lasix, Fluid restriction, Strict I&O, Breathing treatments as needed, Home medications reconciled, Plan discussed with: Patient My Orders Orders - SILVER BUSTAMANTE ORACLE TECHNICAL DEVELOPER Procedure Category Date Status Time Admit ADMIT 03/06/25 Transmitted 09:07 Code Status CODE 03/06/25 Transmitted 09:07 Sodium Chloride Lock PHA 03/06/25 Logged (Saline Lock Ns) 14:00 Hydrocodone-Acet PHA 03/06/25 Logged 5/325mg Tab ([place] 09:15 Ondansetron Hcl PHA 03/06/25 Logged (Zofran) 09:15 Docusate Sodium [facility] 03/06/25 Logged Capsule (Colace 09:15 Complete Blood Count LAB 03/07/25 Verified 04:00 Comprehensive LAB 03/07/25 Verified Metabolic Panel 04:00 Condition: Serious [facility] 03/06/25 In Process 09:07 Acetaminophen Tablet [facility] 03/06/25 Logged (Tylenol Tablet) 09:15 Nitroglycerin [facility] 03/06/25 Logged Sublingual (Ntrostat 09:15 Morphine Sulfate [facility] 03/06/25 Logged Injection 09:15 Stat Ekg For Chest [facility] 03/06/25 In Process Pain 09:07 Notify Of Changes [facility] 03/06/25 In Process From Base 09:07 Developer Advocate For [facility] 03/06/25 In Process 24 Hours 09:07 Emergency Dysrhythmia [facility] 03/06/25 In Process Protocol 09:07 Rhythm Strips Once [facility] 03/06/25 In Process Every Shift 09:07 Oxygen By Nasal RT 03/06/25 Transmitted Cannula 09:07 Complete Blood Count LAB 03/06/25 Logged 09:11 Comprehensive LAB 03/06/25 Logged Metabolic Panel 09:11 *Dr. Topete [facility] CONS 03/06/25 Transmitted -[place] 09:22 Furosemide Injection [facility] 03/06/25 Logged (Lasix Injection) 09:30 Aspirin Tablet [facility] 03/06/25 Transmitted 10:00 (Nf) Cholecalciferol PHA 03/06/25 Transmitted (D3) 10:00 (Nf) Zinc Gluconate [facility] 03/06/25 Transmitted (Zinc) 10:00 Clindamycin Ivpb [facility] 03/06/25 Transmitted Cleocin 14:00 Date of Service: Mar 06, 2025 Billing Provider: SILVER BUSTAMANTE Common Visit Codes: [id number] INP/OBS CARE (MOD) SILVER BUSTAMANTE Mar 06, 2025 09:41
[2025-03-06] MEDS ORDERED: PATIENTS OWN MEDICATION (Cholecalciferol (D3) 2,000 UNIT) PO SCH (10:00)
--- NOTE | 2025-03-06 10:26 | DVH ---
INDICATION: Short of breath TECHNIQUE: Frontal view of the chest. COMPARISON: XR CHEST 2 VIEW on DOS: 11/23/24, XR CHEST 1 VIEW on DOS: 08/24/24, XR CHEST 1 VIEW on DOS: 08/24/24, XR CHEST 1 VIEW on DOS: 08/23/24, XR CHEST 1 VIEW on DOS: 08/23/24 FINDINGS: Right tunneled hemodialysis catheter tip in the cavoatrial junction.. Cardiomegaly. There is no evid ence of pleural disease. The lungs are clear. The bony structures of the chest are intact without fracture. IMPRESSION: 1. Cardiomegaly with CHF.
[2025-03-06] MEDS: CHOLECALCIFEROL (VITD3) 1,000UNIT=25mCg TAB PO SCH (10:31)
[2025-03-06] MEDS: DOCUSATE SOD 100 MG CAP PO PRN (10:31)
[2025-03-06] MEDS: SODIUM CHL 0.9% 1000 ML BAG XX ONE (11:00)
--- NOTE | 2025-03-06 11:12 | DVHPN2 ---
Subjective He has swelling and pain and redness in his both legs for 5 days Changes from previous H/P or p: Changes Eyes: No Pain, No Vision change, No Conjunctivae inflammation, No Eyelid in flammation, No Other, No Redness ENT: No Ear pain, No Ear discharge, No Nose pain, No Nose discharge, No Nose congestion, No Mouth pain, No Mouth swelling, No Throat pain, No Throat swelling, No Other Cardiovascular: No Chest Pain, No Palpitations, No Orthopnea, No Paroxysmal Noc. Dyspnea; Edema (bilateral lower extremities); No Lt Headedness, No Other Respiratory: No Cough, No Dry, No Shortness of breath, No SOB with excertion, No Wheezing, No Hemoptysis, No Pleuritic Pain, No Sputum, No Other Gastrointestinal: No Nausea, No Vomiting, No Abdominal Pain, No Diarrhea, No Constipation, No Melena, No Hematochezia, No Other Genitourinary: No Dysuria, No Frequency, No Incontinence, No Hematuria, No Retention, No Other Musculoskeletal: No other, No neck pain, No shoulder pain, No arm pain, No back pain, No hand pain; leg pain (bilateral lower extremities); No foot pain Skin: No Rash, No Lesions, No Jaundice, No Bruising, No Other Objective Vitals Vital Signs Date Time Temp Pulse Resp B/P (MAP) Pulse Ox O2 Delivery O2 Flow Rate FiO2 03/06/25 08:20 Room Air* 0 21 03/06/25 06:23 97.9 70 18 117/76 (90) 97 97.9 General Appearance: Alert, Oriented X3, Cooperative Lungs: Clear to auscultation, Normal air movement Cardiovascular: Regular rate, Normal S1, Normal S2, No murmurs Abdomen: Normal bowel sounds, Soft, No tenderness Extremities: Other (2+ edema bilaterally in the lower extremities) Medications Current Medications Medications Dose Ordered Sig/Satish Route Start Time Stop Time Status Last Admin Dose Admin Sodium Chloride 10 ml Q8HR IV 03/06/25 14:00 Acetaminophen/ Hydrocodone Bitart 1 tab Q4HP PRN PO 03/06/25 09:15 Ondansetron HCl 4 mg Q4HP PRN IV 03/06/25 09:15 Docusate Sodium 100 mg BIDPRN PRN PO 03/06/25 09:15 03/06/25 10:31 100 MG Acetaminophen 650 mg Q6HP PRN PO 03/06/25 09:15 Nitroglycerin 0.4 mg Q5MINP PRN SL 03/06/25 09:15 Morphine Sulfate 2 mg Q30M PRN IV 03/06/25 09:15 Aspirin 81 mg DAILY PO 03/06/25 10:00 03/06/25 10:32 81 MG Patient Own Medication 2,000 unit DAILY PO 03/06/25 10:00 UNV Patient Own Medication 100 mg DAILY PO 03/06/25 10:00 Clindamycin Phosphate 50 ml @ 50 mls/hr Q8HR IV 03/06/25 14:00 Patient Own Medication 2 tab TID PO 03/06/25 14:00 UNV Cholecalciferol 2,000 unit DAILY PO 03/06/25 10:00 03/06/25 10:31 2,000 UNIT Sevelamer HCl 1,600 mg TIDWM PO 03/06/25 12:00 Assessment/Plan Assessment/Plan Bilateral lower extremity cellulitis Fluid overload End-stage renal disease on hemodialysis Noncompliance with fluid restriction History of COPD Plan Order ultrasound of the lower extremities to rule out DVT IV antibiotics Nephrology consult for hemodialysis Resume home medications Monitor closely Full code Advance directives discussed for 18 minutes Plan discussed with: Patient Date of Service: Mar 06, 2025 Billing Provider: CHET DOMINGUEZ MD Common Visit Codes: [id number] INP/OBS CARE(HIGH) CHET DOMINGUEZ MD Mar 06, 2025 11:12
[2025-03-06 11:26] LABS: Hematocrit 35.4 % (41.0-53.0); Hemoglobin 12.0 g/dL (13.5-17.5); Mean Corpuscular Hemoglobin 29.2 pg (28.0-32.0); Mean Corpuscular Volume 86.2 fL (80.0-100.0); Nucleated Red Blood Cells % 0.1 %
[2025-03-06 11:48] LABS: Alanine Aminotransferase 21 U/L (7-40); Albumin 4.5 g/dL (3.2-4.8); Alkaline Phosphatase 98 U/L (46-116); Anion Gap 12 (5-15); BUN/Creatinine Ratio 9.4 (10.0-20.0); Calcium 9.3 mg/dL (8.7-10.4); Carbon Dioxide 25 mmol/L (20-31); Chloride 103 mmol/L (98-107); Potassium 4.0 mmol/L (3.5-5.1); Sodium 140 mmol/L (136-145); Total Protein 7.8 g/dL (5.7-8.2)
[2025-03-06 11:49] LABS: Bilirubin, Total 0.5 mg/dL (0.2-1.0)
[2025-03-06 11:53] LABS: Blood Urea Nitrogen 34 mg/dL (9-23); Glucose 66 mg/dL (74-106)
[2025-03-06 11:56] LABS: Magnesium 2.3 mg/dL (1.6-2.6)
[2025-03-06] MEDS: SEVELAMER 800 MG TAB PO SCH (12:00)
[2025-03-06 12:15] LABS: Hepatitis B Surface Antigen Negative (Negative)
--- NOTE | 2025-03-06 12:34 | DVHINCON2 ---
Date of service: Mar 06, 2025 Referring Physician Nicolette Lynch, nurse practitioner Reason for Consultation End-stage renal disease to manage hemodialysis History of Present Illness Patient is a 65-year-old obese male with past medical history significant for ESRD on HD M,W,F, COPD, DVT, and chronic pain is transferred from [facility] for bilateral lower extremity edema. On admission Nephrology is consulted to manage his hemodialysis Past Medical History ESRD on HD M,W,F, COPD, DVT, and chronic pain Past Surgical History Right IJ tunneled hemodialysis catheter Allergies: Coded Allergies: NO KNOWN ALLERGIES (Unverified , 01/19/19) Home Meds Active Scripts Phenazopyridine HCl (Phenazopyridine Hydrochol) 200 Mg Tab, 1 TAB PO TID for 3 Days, #9 TAB Prov:IVEYISATUALDA Q TRAIN BRAKEMAN 06/18/23 Cephalexin Monohydrate (Cephalexin) 500 Mg Cap, 1 CAP PO QID for 10 Days, #40 CAP Prov:IVEYNORALDA Q TRAIN BRAKEMAN 06/18/23 Docusate Sodium (Colace) 100 Mg Cap, 100 MG PO BIDP PRN for 30 Days, #50 CAP Prov:NATIVIDAD NG MD 09/14/22 Methylprednisolone (Medrol Dosepak) 4 Mg Estuardo, 4 MG PO UD, #21 TAB UAD Prov:FARSHAD FLETCHER MD 08/30/22 Ipratropium [place] (Ipratropium [place]) 0.02 % Luiza, 0.5 MG NEB Q4HPRN PRN, #120 ML Prov:FARSHAD FLETCHER MD 08/30/22 Albuterol Sulfate (Ventolin) 2.5 Mg/0.5 Ml Nb, 2.5 MG NEB Q4HPRN PRN, #120 INH Prov:FARSHAD FLETCHER MD 08/30/22 Albuterol Sulfate (VENTOLIN MDI) 90 Mcg Ih, 180 MCG IN TIDPRN PRN, #1 INH Prov:FARSHAD FLETCHER MD 08/30/22 Zinc Gluconate (ZINC) 100 Mg Tab, 100 MG PO DAILY, #10 TAB Prov:FIDELINA ARTEAGA MD 05/31/20 Famotidine (PEPCID TABLET) 20 Mg Tb, 1 TAB PO BID, #30 TAB Prov:FIDELINA ARTEAGA MD 05/31/20 Aspirin (Asa) 81 Mg Ch, 81 MG PO DAILY, #14 TAB.CHEW Prov:FIDELINA ARTEAGA MD 05/31/20 Cholecalciferol (D3) 2,000 Unit Cap, 2000 UNIT PO DAILY, #14 CAP Prov:FIDELINA ARTEAGA MD 05/31/20 Reported Medications Sevelamer Carbonate (Sevelamer Carbonate) 800 Mg Tab, 2 TAB PO TID 03/06/25 Furosemide (Furosemide) 40 Mg Tab, 1 TAB PO DAILY 03/06/25 Methadone Hcl (Methadone Hcl) 5 Mg Tab, 45 MG PO DAILY, TAB 08/28/22 Lisinopril (Lisinopril) 20 Mg Tab, 20 MG PO DAILY for 30 Days, MG 08/28/22 Hydrocodone-Acetaminophen ([place] 5/325MG) 1 Tab Tb, 1 TAB PO TID, #90 TAB 02/19/19 Discontinued Scripts Clindamycin Hcl (Clindamycin Hcl) 300 Mg Cap, 1 CAP PO TID, #30 CAP Prov:JUSTO HICKS MD 12/10/22 Levofloxacin Hemihydrate (LEVOFLOXACIN) 750 Mg Tab, 1 TAB PO DAILY for 10 Days, #10 TAB Prov:NINA VENTURA MD 11/17/22 Doxycycline (Monohydrate) (Doxycycline) 100 Mg Cap, 100 MG PO BID, #14 CAP Prov:FARSHAD FLETCHER MD 08/30/22 Current Medications Current Medications Medications (Trade) Dose Ordered Sig/Satish Route PRN Reason Start Time Stop Time Status Last Admin Sodium Chloride (Saline Lock Ns) 10 ml Q8HR IV 03/06/25 14:00 Acetaminophen/ Hydrocodone Bitart ([place] 5/325MG Tab) 1 tab Q4HP PRN PO MODERATE PAIN (4-6 PAIN SCALE) 03/06/25 09:15 Ondansetron HCl (Zofran) 4 mg Q4HP PRN IV NAUSEA / VOMITING 03/06/25 09:15 Docusate Sodium (Colace Capsule) 100 mg BIDPRN PRN PO FOR CONSTIPATION 03/06/25 09:15 03/06/25 10:31 Acetaminophen (Tylenol Tablet) 650 mg Q6HP PRN PO PAIN SCALE 1-3 OR TEMP>100.4 03/06/25 09:15 Nitroglycerin (Ntrostat Sublingual) 0.4 mg Q5MINP PRN SL FOR CHEST PAIN 03/06/25 09:15 Morphine Sulfate 2 mg Q30M PRN IV FOR CHEST PAIN 03/06/25 09:15 Aspirin 81 mg DAILY PO 03/06/25 10:00 03/06/25 10:32 Patient Own Medication 2,000 unit DAILY PO 03/06/25 10:00 UNV Patient Own Medication 100 mg DAILY PO 03/06/25 10:00 Clindamycin Phosphate 50 ml @ 50 mls/hr Q8HR IV 03/06/25 14:00 Patient Own Medication 2 tab TID PO 03/06/25 14:00 UNV Cholecalciferol (Vitamin D3 Tablet) 2,000 unit DAILY PO 03/06/25 10:00 03/06/25 10:31 Sevelamer HCl (Renagel) 1,600 mg TIDWM PO 03/06/25 12:00 Family History: Cerebrovascular accident (CVA) G8 FATHER Disorder of brain G8 MOTHER Review of Systems All 12 item review of systems reviewed with the patient nonsignificant except what is mentioned in the history of present illness H&P Exam Vital Signs/I&O Vital Sign Date Time Temp Pulse Resp B/P (MAP) Pulse Ox O2 Delivery O2 Flow Rate FiO2 03/06/25 09:30 126/74 03/06/25 08:20 Room Air* 0 21 03/06/25 06:23 97.9 70 18 97 97.9 Physical Exam Obese male lying comfortably in bed Patient examined hemodialysis, blood pressure stable Lungs clear to auscultation bilaterally Cardiac exam regular rate and rhythm GI soft nontender normal Extr. Bilateral swelling and erythema Neuro nonfocal Labs/Diagnostic Data Labs/Diagnostic Data Laboratory Tests Test 03/06/25 10:24 Range/Units White Blood Count 5.3 4.4-10.8 10^3/uL Red Blood Count 4.10 L 4.5-5.90 10^6/uL Hemoglobin 12.0 L 13.5-17.5 g/dL Hematocrit 35.4 L 41.0-53.0 % Mean Corpuscular Volume 86.2 80.0-100.0 fL Mean Corpuscular Hemoglobin 29.2 28.0-32.0 pg Mean Corpuscular Hemoglobin Concent 33.9 32.0-36.0 g/dL Red Cell Distribution Width 14.5 H 11.8-14.3 % Platelet Count 180 140-450 10^3/uL Mean Platelet Volume 8.1 6.9-10.8 fL Neutrophils (%) (Auto) 44.3 37.0-80.0 % Lymphocytes (%) (Auto) 44.2 10.0-50.0 % Monocytes (%) (Auto) 8.9 0.0-12.0 % Eosinophils (%) (Auto) 2.1 0.0-7.0 % Basophils (%) (Auto) 0.5 0.0-2.0 % Neutrophils # (Auto) 2.4 1.6-8.6 10 ^3/uL Lymphocytes # (Auto) 2.3 0.4-5.4 10 ^3/uL Monocytes # (Auto) 0.5 0-1.3 10 ^3/uL Eosinophils # (Auto) 0.1 0-0.8 10 ^3/uL Basophils # (Auto) 0 0-0.2 10 ^3/uL Nucleated Red Blood Cells 0.1 % Sodium Level 140 136-145 mmol/L Potassium Level 4.0 3.5-5.1 mmol/L Chloride Level 103 98-107 mmol/L Carbon Dioxide Level 25 20-31 mmol/L Anion Gap 12 5-15 Blood Urea Nitrogen 34 H 9-23 mg/dL Creatinine 3.62 H 0.700-1.30 mg/dL Glomerular Filtration Rate Calc 18 >90 mL/min BUN/Creatinine Ratio 9.4 L 10.0-20.0 Serum Glucose 66 L 74-106 mg/dL Hemoglobin A1c 5.3 <5.7 % A1C Calcium Level 9.3 8.7-10.4 mg/dL Phosphorus Level 5.0 2.4-5.1 mg/dL Magnesium Level 2.3 1.6-2.6 mg/dL Total Bilirubin 0.5 0.2-1.0 mg/dL Aspartate Amino Transferase (AST) 24 13-40 U/L Alanine Aminotransferase (ALT) 21 7-40 U/L Alkaline Phosphatase 98 46-116 U/L B-Type Natriuretic Peptide 51.51 0-100 pg/mL Total Protein 7.8 5.7-8.2 g/dL Albumin 4.5 3.2-4.8 g/dL Vitamin D 25-Hydroxy 21.0 L 30.0-100 ng/mL Parathyroid Hormone (Intact) 76.9 18.4-80.1 pg/mL Hepatitis B Surface Antigen Negative Negative Assessment End-stage renal disease on hemodialysis Congestive heart failure exacerbation Bilateral lower extremity cellulitis Hypertension Mild anemia of chronic kidney disease Recommendations Continue with UF to 3 L as tolerated Resume home medications Strict I&Os IV antibiotics Doppler ultrasound from [facility] is negative for DVT Renal diet We will continue to follow Patient seen and examined by myself. I discussed my plan of care with the p lore and primary nurse at the bedside I would like to thank Nicolette for the consult, will follow Plan discussed with: Patient NASH DUNNE MD Mar 06, 2025 12:34
[2025-03-06 12:42] LABS: Hepatitis C Antibody Reactive (Negative)
[2025-03-06] MEDS ORDERED: METH10TA12 PO (12:42)
[2025-03-06] MEDS ORDERED: PATIENTS OWN MEDICATION (Sevelamer Carbonate 2 TAB) PO SCH (14:00)
[2025-03-06] MEDS: SODIUM CHLOR 0.9% PF (SALINE LOCK) 10ML VIAL/SYR IV SCH (14:00)
[2025-03-06] MEDS: CLINDAMYCIN 600MG IV 50 ML IV SCH (14:00)
--- NOTE | 2025-03-06 14:46 | DVH ---
Technique: Real-time ultrasound imaging, with color Doppler and compression of the bilateral common femoral vein, femoral vein, greater saphenous vein, and popliteal vein. Indication: edema Comparison: US RT LOWER DVT on DOS: 01/02/25, Findings: There is normal compressibility and flow augmentation in all of the imaged deep veins. There are no f illing defects. Bilateral lower extremity soft tissue edema. Impression: No evidence of DVT in the bilateral lower extremities
[2025-03-06] MEDS: ALBUTEROL SULF 2.5 MG/0.5ML(0.5%) NEB SOLN NEB PRN (20:19)
[2025-03-06] MEDS: IPRATROPIUM BROM 0.5 MG/2.5ML INH SOL NEB PRN (20:19)
[2025-03-06] MEDS: EPOETIN ALFA-EPBX 4,000 UNIT/ML VIAL SC ONE (22:17)
[2025-03-07] VITALS (11 sets, daily range): BP systolic 100–132; BP diastolic 61–78; PULSE 60–80; RESP 12–20; TEMP 97.5–98.2; O2SAT 93–100
[2025-03-07] MEDS: SODIUM CHL 0.9% 1000 ML BAG XX ONE (07:00)
[2025-03-07 07:02] LABS: Hematocrit 33.4 % (41.0-53.0); Hemoglobin 12.0 g/dL (13.5-17.5); Mean Corpuscular Hemoglobin 30.3 pg (28.0-32.0); Mean Corpuscular Volume 84.6 fL (80.0-100.0); Nucleated Red Blood Cells % 0.1 %
[2025-03-07 07:20] LABS: Alanine Aminotransferase 17 U/L (7-40); Alkaline Phosphatase 92 U/L (46-116); Anion Gap 10 (5-15); BUN/Creatinine Ratio 7.9 (10.0-20.0); Calcium 9.2 mg/dL (8.7-10.4); Carbon Dioxide 30 mmol/L (20-31); Chloride 102 mmol/L (98-107); Glucose 74 mg/dL (74-106); Magnesium 2.2 mg/dL (1.6-2.6); Potassium 4.6 mmol/L (3.5-5.1); Sodium 142 mmol/L (136-145); Total Protein 7.2 g/dL (5.7-8.2)
[2025-03-07 07:21] LABS: Albumin 4.0 g/dL (3.2-4.8); Bilirubin, Total 0.3 mg/dL (0.2-1.0)
[2025-03-07 07:32] LABS: Blood Urea Nitrogen 25 mg/dL (9-23)
[2025-03-07] MEDS ORDERED: METHADONE HCL 10 MG TAB PO SCH (10:00)
[2025-03-07] MEDS: METHADONE HCL 10 MG TAB PO SCH (11:05)
--- NOTE | 2025-03-07 12:28 | DVHPN2 ---
Subjective Edema is better Changes from previous H/P or p: Changes Eyes: No Pain, No Vision change, No Conjunctivae inflammation, No Eyelid inflammation, No Other, No Redness ENT: No Ear pain, No Ear discharge, No Nose pain, No Nose discharge, No Nose congestion, No Mouth pain, No Mouth swelling, No Throat pain, No Throat swelling, No Other Cardiovascular: No Chest Pain, No Palpitations, No Orthopnea, No Paroxysmal Noc. Dyspnea; Edema (bilateral lower extremities); No Lt Headedness, No Other Respiratory: No Cough, No Dry, No Shortness of breath, No SOB with excertion, No Wheezing, No Hemoptysis, No Pleuritic Pain, No Sputum, No Other Gastrointestinal: No Nausea, No Vomiting, No Abdominal Pain, No Diarrhea, No Constipation, No Melena, No Hematochezia, No Other Genitourinary: No Dysuria, No Frequency, No Incontinence, No Hematuria, No Retention, No Other Musculoskeletal: No other, No neck pain, No shoulder pain, No arm pain, No back pain, No hand pain; leg pain (bilateral lower extremities); No foot pain Skin: No Rash, No Lesions, No Jaundice, No Bruising, No Other Objective Vitals Vital Signs Date Time Temp Pulse Resp B/P (MAP) Pulse Ox O2 Delivery O2 Flow Rate FiO2 03/07/25 10:10 96 Room Air 03/07/25 10:10 0 21 03/07/25 08:59 98.2 71 12 114/61 (78) 98.2 Intake/Output Intake and Output 03/07/25 07:00 Intake Total 1550 ml Output Total 1150 ml Balance 400 ml Intake Oral 1500 ml IV Total 50 ml Output Urine Total 1150 ml # Bowel Movements 1 General Appearance: Alert, Oriented X3, Cooperative Lungs: Clear to auscultation, Normal air movement Cardiovascular: Regular rate, Normal S1, Normal S2, No murmurs Abdomen: Normal bowel sounds, Soft, No tenderness Extremities: Other (2+ edema bilaterally in the lower extremities) Medications Current Medications Medications Dose Ordered Sig/Satish Route Start Time Stop Time Status Last Admin Dose Admin Sodium Chloride 10 ml Q8HR IV 03/06/25 14:00 03/07/25 05:13 10 ML Acetaminophen/ Hydrocodone Bitart 1 tab Q4HP PRN PO 03/06/25 09:15 Ondansetron HCl 4 mg Q4HP PRN IV 03/06/25 09:15 Docusate Sodium 100 mg BIDPRN PRN PO 03/06/25 09:15 03/07/25 09:55 100 MG Acetaminophen 650 mg Q6HP PRN PO 03/06/25 09:15 Nitroglycerin 0.4 mg Q5MINP PRN SL 03/06/25 09:15 Morphine Sulfate 2 mg Q30M PRN IV 03/06/25 09:15 Aspirin 81 mg DAILY PO 03/06/25 10:00 03/07/25 09:55 81 MG Patient Own Medication 2,000 unit DAILY PO 03/06/25 10:00 UNV Patient Own Medication 100 mg DAILY PO 03/06/25 10:00 Clindamycin Phosphate 50 ml @ 50 mls/hr Q8HR IV 03/06/25 14:00 03/07/25 05:13 50 MLS/HR Patient Own Medication 2 tab TID PO 03/06/25 14:00 UNV Cholecalciferol 2,000 unit DAILY PO 03/06/25 10:00 03/07/25 09:55 2,000 UNIT Sevelamer HCl 1,600 mg TIDWM PO 03/06/25 12:00 03/07/25 07:59 1,600 MG Ipratropium [place] 0.5 mg Q6HPRN PRN NEB 03/06/25 15:45 03/06/25 20:19 0.5 MG Albuterol 2.5 mg Q6HPRN PRN NEB 03/06/25 15:45 03/06/25 20:19 2.5 MG Methadone HCl 120 mg DAILY PO 03/07/25 10:30 03/11/25 10:00 03/07/25 11:05 120 MG Laboratory Results Laboratory Tests 03/07/25 05:45 Chemistry Test 03/07/25 05:45 Albumin 4.0 g/dL (3.2-4.8) Calcium Level 9.2 mg/dL (8.7-10.4) Magnesium Level 2.2 mg/dL (1.6-2.6) Total Protein 7.2 g/dL (5.7-8.2) LFT Test 03/07/25 05:45 Alanine Aminotransferase (ALT) 17 U/L (7-40) Alkaline Phosphatase 92 U/L (46-116) Aspartate Amino Transferase (AST) 22 U/L (13-40) Total Bilirubin 0.3 mg/dL (0.2-1.0) Microbiology Microbiology Date/Time Source Procedure Growth Status 03/06/25 10:03 Nose MRSA Screen - Final Complete Assessment/Plan Assessment/Plan Bilateral lower extremity cellulitis Fluid overload End-stage renal disease on hemodialysis Noncompliance with fluid restriction History of COPD Plan Order ultrasound of the lower extremities to rule out DVT IV antibiotics Nephrology consult for hemodialysis Resume home medications Monitor closely Full code Advance directives discussed for 18 minutes 03/07/2025: DVT was ruled out Continue antibiotics Fluid restriction Hemodialysis per nephrology Monitor in the hospital 1 more day Plan discussed with: Patient My Orders Orders - CHET DOMINGUEZ MD Procedure Category Date Status Time Regular Diet DIET 03/06/25 Transmitted Dinner Date of Service: Mar 07, 2025 Billing Provider: CHET DOMINGUEZ MD Common Visit Codes: [id number] INP/OBS CARE(HIGH) CHET DOMINGUEZ MD Mar 07, 2025 12:28
--- NOTE | 2025-03-07 14:17 | DVHPN2 ---
Progress Note Date Seen: Mar 07, 2025 Medical Necessity Reason Pt with a Central, PICC or Fol: No Subjective Patient reports: Feels better Other Systems: Patient seen and examined by myself today in follow-up Patient examined hemodialysis, blood pressure stable Objective vital signs Vital Sign Date Time Temp Pulse Resp B/P (MAP) Pulse Ox O2 Delivery O2 Flow Rate FiO2 03/07/25 13:00 97.8 60 20 132/77 (95) 99 97.8 03/07/25 10:10 Room Air 03/07/25 10:10 0 21 Total Intake and Output 03/06/25 03/06/25 03/07/25 15:00 23:00 07:00 Intake Total 700 ml 700 ml 150 ml Output Total 950 ml 200 ml Balance 700 ml -250 ml -50 ml medications Current Medications Medications Dose Ordered Sig/Satish Route Start Time Stop Time Status Last Admin Dose Admin Sodium Chloride 10 ml Q8HR IV 03/06/25 14:00 03/07/25 05:13 10 ML Acetaminophen/ Hydrocodone Bitart 1 tab Q4HP PRN PO 03/06/25 09:15 Ondansetron HCl 4 mg Q4HP PRN IV 03/06/25 09:15 Docusate Sodium 100 mg BIDPRN PRN PO 03/06/25 09:15 03/07/25 09:55 100 MG Acetaminophen 650 mg Q6HP PRN PO 03/06/25 09:15 Nitroglycerin 0.4 mg Q5MINP PRN SL 03/06/25 09:15 Morphine Sulfate 2 mg Q30M PRN IV 03/06/25 09:15 Aspirin 81 mg DAILY PO 03/06/25 10:00 03/07/25 09:55 81 MG Patient Own Medication 2,000 unit DAILY PO 03/06/25 10:00 UNV Patient Own Medication 100 mg DAILY PO 03/06/25 10:00 Clindamycin Phosphate 50 ml @ 50 mls/hr Q8HR IV 03/06/25 14:00 03/07/25 05:13 50 MLS/HR Patient Own Medication 2 tab TID PO 03/06/25 14:00 UNV Cholecalciferol 2,000 unit DAILY PO 03/06/25 10:00 03/07/25 09:55 2,000 UNIT Sevelamer HCl 1,600 mg TIDWM PO 03/06/25 12:00 03/07/25 07:59 1,600 MG Ipratropium [place] 0.5 mg Q6HPRN PRN NEB 03/06/25 15:45 03/06/25 20:19 0.5 MG Albuterol 2.5 mg Q6HPRN PRN NEB 03/06/25 15:45 03/06/25 20:19 2.5 MG Methadone HCl 120 mg DAILY PO 03/07/25 10:30 03/11/25 10:00 03/07/25 11:05 120 MG Examination: LUNGS:Normal, CVS:Normal, MSK:Abnormal laboratory and microbiology Laboratory Tests 03/07/25 05:45 Test 03/07/25 05:45 Range/Units Serum Glucose 74 74-106 mg/dL Microbiology Date/Time Source Procedure Growth Status 03/06/25 10:03 Nose MRSA Screen - Final Complete Problem List/Assessment/Plan Problem List/Assessment/Plan End-stage renal disease on hemodialysis Congestive heart failure exacerbation Bilateral lower extremity cellulitis Hypertension Mild anemia of chronic kidney disease Recommendations Continue with UF to 2-3 L as tolerated Hemodialysis again tomorrow Resume home medications Strict I&Os IV antibiotics Doppler ultrasound from [facility] is negative for DVT Renal diet We will continue to follow Plan discussed with: Patient My Orders My Orders Orders - NASH DUNNE MD Procedure Category Date Status Time Hemodialysis Orders ORDERS 03/07/25 Transmitted 07:00 Dialysis Nursing KIM 03/07/25 In Process Message 07:00 Document Fluid Input KIM 03/07/25 In Process And Outpu 07:00 Epoetin Raul-Epbx PHA 03/07/25 In Process (Retacrit) 21:00 NASH DUNNE MD Mar 07, 2025 14:17
[2025-03-07] MEDS: EPOETIN ALFA-EPBX 10,000 UNIT/1ML VIAL SC ONE (21:13)
[2025-03-08 01:00] VITALS: BP 102/55; PULSE 67; RESP 18; TEMP 97.6; O2SAT 97
[2025-03-08 05:00] VITALS: BP 114/61; PULSE 64; RESP 18; TEMP 98; O2SAT 99
[2025-03-08 06:26] LABS: Chloride 102 mmol/L (98-107); Potassium 4.3 mmol/L (3.5-5.1); Sodium 140 mmol/L (136-145)
[2025-03-08 06:27] LABS: Anion Gap 9 (5-15); Carbon Dioxide 29 mmol/L (20-31)
[2025-03-08 06:28] LABS: Calcium 9.2 mg/dL (8.7-10.4)
[2025-03-08 06:32] LABS: BUN/Creatinine Ratio 8.5 (10.0-20.0)
[2025-03-08 06:41] LABS: Blood Urea Nitrogen 25 mg/dL (9-23); Glucose 73 mg/dL (74-106)
[2025-03-08] MEDS: SODIUM CHL 0.9% 1000 ML BAG XX ONE (07:15)
[2025-03-08 09:00] VITALS: BP 100/71; PULSE 61; RESP 16
[2025-03-08 10:00] VITALS: O2SAT 98
--- NOTE | 2025-03-08 10:39 | DVHPN2 ---
Progress Note Date Seen: Mar 08, 2025 Medical Necessity Reason Pt with a Central, PICC or Fol: No Subjective Patient reports: No new complaints Other Systems: Patient seen and examined by myself today in follow-up Patient examined hemodialysis, blood pressure stable Objective vital signs Vital Sign Date Time Temp Pulse Resp B/P (MAP) Pulse Ox O2 Delivery O2 Flow Rate FiO2 03/08/25 09:00 61 16 100/71 (81) 03/08/25 05:00 98.0 99 98.0 03/07/25 20:00 Room Air* 0 21 Total Intake and Output 03/07/25 03/07/25 03/08/25 15:00 23:00 07:00 Intake Total 240 ml 300 ml Output Total 250 ml 300 ml 200 ml Balance -250 ml -60 ml 100 ml medications Current Medications Medications Dose Ordered Sig/Satish Route Start Time Stop Time Status Last Admin Dose Admin Sodium Chloride 10 ml Q8HR IV 03/06/25 14:00 03/08/25 05:45 10 ML Acetaminophen/ Hydrocodone Bitart 1 tab Q4HP PRN PO 03/06/25 09:15 Ondansetron HCl 4 mg Q4HP PRN IV 03/06/25 09:15 Docusate Sodium 100 mg BIDPRN PRN PO 03/06/25 09:15 03/07/25 09:55 100 MG Acetaminophen 650 mg Q6HP PRN PO 03/06/25 09:15 Nitroglycerin 0.4 mg Q5MINP PRN SL 03/06/25 09:15 Morphine Sulfate 2 mg Q30M PRN IV 03/06/25 09:15 Aspirin 81 mg DAILY PO 03/06/25 10:00 03/07/25 09:55 81 MG Patient Own Medication 2,000 unit DAILY PO 03/06/25 10:00 UNV Patient Own Medication 100 mg DAILY PO 03/06/25 10:00 Clindamycin Phosphate 50 ml @ 50 mls/hr Q8HR IV 03/06/25 14:00 03/08/25 05:44 50 MLS/HR Patient Own Medication 2 tab TID PO 03/06/25 14:00 UNV Cholecalciferol 2,000 unit DAILY PO 03/06/25 10:00 03/07/25 09:55 2,000 UNIT Sevelamer HCl 1,600 mg TIDWM PO 03/06/25 12:00 03/07/25 07:59 1,600 MG Ipratropium [place] 0.5 mg Q6HPRN PRN NEB 03/06/25 15:45 03/06/25 20:19 0.5 MG Albuterol 2.5 mg Q6HPRN PRN NEB 03/06/25 15:45 03/06/25 20:19 2.5 MG Methadone HCl 120 mg DAILY PO 03/07/25 10:30 03/11/25 10:00 03/07/25 11:05 120 MG Examination: LUNGS:Normal, CVS:Normal, MSK:Abnormal laboratory and microbiology Laboratory Tests 03/08/25 05:42 03/07/25 05:45 Test 03/08/25 05:42 Range/Units Serum Glucose 73 L 74-106 mg/dL Microbiology Date/Time Source Procedure Growth Status 03/06/25 10:03 Nose MRSA Screen - Final Complete Problem List/Assessment/Plan Problem List/Assessment/Plan End-stage renal disease on hemodialysis Congestive heart failure exacerbation Fluid overload Bilateral lower extremity cellulitis Hypertension Mild anemia of chronic kidney disease Recommendations Continue with UF to 2-3 L as tolerated Resume home medications Strict I&Os IV antibiotics Doppler ultrasound from [facility] is negative for DVT Renal diet We will continue to follow Plan discussed with: Patient My Orders My Orders Orders - NASH DUNNE MD Procedure Category Date Status Time Hemodialysis Orders ORDERS 03/08/25 Transmitted 07:00 Dialysis Nursing KIM 03/08/25 In Process Message 07:00 Document Fluid Input KIM 03/08/25 In Process And Outpu 07:00 NASH DUNNE MD Mar 08, 2025 10:39
[2025-03-08] MEDS ORDERED: DOXY1CAP57 PO (11:17)
--- NOTE | 2025-03-08 11:18 | DVHDS2 ---
Discharge Summary Date of Admission Mar 06, 2025 at 04:36 Date of Discharge: Mar 08, 2025 Labs/Diagnostic Data: Laboratory Results Test 03/08/25 05:42 03/07/25 05:45 03/06/25 10:24 Sodium Level 140 mmol/L (136-145) Potassium Level 4.3 mmol/L (3.5-5.1) Chloride Level 102 mmol/L (98-107) Carbon Dioxide Level 29 mmol/L (20-31) Anion Gap 9 (5-15) Blood Urea Nitrogen 25 mg/dL (9-23) Creatinine 2.94 mg/dL (0.700-1.30) Glomerular Filtration Rate Calc 23 mL/min (>90) BUN/Creatinine Ratio 8.5 (10.0-20.0) Serum Glucose 73 mg/dL (74-106) Calcium Level 9.2 mg/dL (8.7-10.4) White Blood Count 4.8 10^3/uL (4.4-10.8) Red Blood Count 3.95 10^6/uL (4.5-5.90) Hemoglobin 12.0 g/dL (13.5-17.5) Hematocrit 33.4 % (41.0-53.0) Mean Corpuscular Volume 84.6 fL (80.0-100.0) Mean Corpuscular Hemoglobin 30.3 pg (28.0-32.0) Mean Corpuscular Hemoglobin Concent 35.8 g/dL (32.0-36.0) Red Cell Distribution Width 14.7 % (11.8-14.3) Platelet Count 164 10^3/uL (140-450) Mean Platelet Volume 8.5 fL (6.9-10.8) Neutrophils (%) (Auto) 46.9 % (37.0-80.0) Lymphocytes (%) (Auto) 40.7 % (10.0-50.0) Monocytes (%) (Auto) 10.2 % (0.0-12.0) Eosinophils (%) (Auto) 1.8 % (0.0-7.0) Basophils (%) (Auto) 0.4 % (0.0-2.0) Neutrophils # (Auto) 2.2 10 ^3/uL (1.6-8.6) Lymphocytes # (Auto) 1.9 10 ^3/uL (0.4-5.4) Monocytes # (Auto) 0.5 10 ^3/uL (0-1.3) Eosinophils # (Auto) 0.1 10 ^3/uL (0-0.8) Basophils # (Auto) 0 10 ^3/uL (0-0.2) Nucleated Red Blood Cells 0.1 % Magnesium Level 2.2 mg/dL (1.6-2.6) Total Bilirubin 0.3 mg/dL (0.2-1.0) Aspartate Amino Transferase (AST) 22 U/L (13-40) Alanine Aminotransferase (ALT) 17 U/L (7-40) Alkaline Phosphatase 92 U/L (46-116) Total Protein 7.2 g/dL (5.7-8.2) Albumin 4.0 g/dL (3.2-4.8) Hemoglobin A1c 5.3 % A1C (<5.7) Phosphorus Level 5.0 mg/dL (2.4-5.1) B-Type Natriuretic Peptide 51.51 pg/mL (0-100) Vitamin D 25-Hydroxy 21.0 ng/mL (30.0-100) Parathyroid Hormone (Intact) 76.9 pg/mL (18.4-80.1) Hepatitis B Surface Antigen Negative (Negative) Hepatitis C Antibody Reactive (Negative) Other Laboratory Tests 03/08/25 05:42 03/07/25 05:45 Brief Hx & Hospital Course: Final diagnoses: Bilateral lower extremity cellulitis Fluid overload End-stage renal disease on hemodialysis Noncompliance with fluid restriction History of COPD 65-year-old male who was admitted for edema in his legs with cellulitis and erythema He was given IV antibiotics He had fluid overload and therefore he was dialyzed per Nephrology and his edema improved significantly He only has trace edema now bilaterally in his legs He is stable for discharge Discharged home on doxycycline for 7 days Continue the home medications Follow up with his primary care physician as soon as possible Follow up with hemodialysis as scheduled Condition at Discharge: Stable Final Diagnosis/Problems List Bilateral lower extremity cellulitis Fluid overload End-stage renal disease on hemodialysis Noncompliance with fluid restriction History of COPD Discharge Disposition: Home SNF Discharge Will this Physician continue t: No Discharge Instruct/Medications Scheduled Aspirin (Asa), 81 MG PO DAILY Cephalexin Monohydrate (Cephalexin), 1 CAP PO QID Cholecalciferol (D3), 2,000 UNIT PO DAILY Famotidine (Pepcid Tablet), 1 TAB PO BID Furosemide (Furosemide), 1 TAB PO DAILY, (Reported) Hydrocodone-Acetaminophen ([place] 5/325MG), 1 TAB PO TID, (Reported) Lisinopril (Lisinopril), 20 MG PO DAILY, (Reported) Methadone Hcl (Methadone Hcl), 130 MG PO DAILY, (Reported) Phenazopyridine HCl (Phenazopyridine Hydrochol), 1 TAB PO TID Sevelamer Carbonate (Sevelamer Carbonate), 2 TAB PO TID, (Reported) Zinc Gluconate (Zinc), 100 MG PO DAILY Scheduled PRN Albuterol Sulfate (Ventolin Mdi), 180 MCG IN TIDPRN PRN Albuterol Sulfate (Ventolin), 2.5 MG NEB Q4HPRN PRN Docusate Sodium (Colace), 100 MG PO BIDP PRN Ipratropium [place] (Ipratropium [place]), 0.5 MG NEB Q4HPRN PRN Discontinued Medications Clindamycin Hcl (Clindamycin Hcl), 1 CAP PO TID Doxycycline (Monohydrate) (Doxycycline), 100 MG PO BID Levofloxacin Hemihydrate (Levofloxacin), 1 TAB PO DAILY Methadone Hcl (Methadone Hcl), 45 MG PO DAILY, (Reported) Methylprednisolone (Medrol Dosepak), 4 MG PO UD Discharge Statement: "Patient was advised to return to the ER or call 911 if any headaches, dizziness, shortness of breath, chest pain, abdominal pain, bleeding, fevers, or worsening of medical condition. Patient was counseled about treatment plan, medications, possible side effects, patientverbalized understanding. All questions were answered to the best of my ability. This discharge took greater then 30 minutes in planning, reviewing documentation, counseling the patient, and discussing with other team members." ASSESSMENT ASSESSMENT Assessment Date of Service: Mar 08, 2025 Billing Provider: CHET DOMINGUEZ MD Common Visit Codes: [id number] DISCH DAY >30min CHET DOMINGUEZ MD Mar 08, 2025 11:18
[2025-03-08 13:05] VITALS: BP 126/74; TEMP 36.7
== END 2025-03-08 13:27 | disposition home or self-care (01) | DRG 602 ==
LOC: CENTRAL 04:36 → TELE-CENTR 09:07
PROVIDERS: ADMIT Internal Medicine Geriatric Medicine; ATTEND Internal Medicine Geriatric Medicine
PROC: 5A1D70Z Performance of Urinary Filtration, Intermittent, Less than 6 Hours Per Day (ICD-10-PCS; principal; 2025-03-06)
PROC: 5A1D70Z Performance of Urinary Filtration, Intermittent, Less than 6 Hours Per Day (ICD-10-PCS; 2025-03-07)
DX: L03.115 Cellulitis of right lower limb (principal); N18.6 End stage renal disease; I13.2 Hypertensive heart and chronic kidney disease with heart failure and with stage 5 chronic kidney disease, or end stage renal disease; E87.70 Fluid overload, unspecified; L03.116 Cellulitis of left lower limb; I50.9 Heart failure, unspecified; D63.1 Anemia in chronic kidney disease; J44.9 Chronic obstructive pulmonary disease, unspecified; E66.9 Obesity, unspecified; G89.29 Other chronic pain; Z90.49 Acquired absence of other specified parts of digestive tract; Z99.2 Dependence on renal dialysis; Z91.119 Patient's noncompliance with dietary regimen due to unspecified reason; Z79.82 Long term (current) use of aspirin; Z79.899 Other long term (current) drug therapy; Z82.3 Family history of stroke; Z68.38 Body mass index [BMI] 38.0-38.9, adult
CPT/HCPCS: 36415; 71045; 80048; 80053; 82306; 83036; 83735; 83880; 83970; 84100; 85025; 86803; 87081; 87340; 90935; 93970; 94640; G0378; J1642; J3490

== ENCOUNTER 2025-06-04 07:55 | Inpatient (IN) | payer MEDICAID ==
[~2025-06-04] VITALS: Ht 180.3 cm; Wt 115.0 kg
[~2025-06-04 07:55] MED LIST changes: -CLIN1CAP70 PO; -DOXY100C79 PO; +DOXY1CAP57 PO; +FURO40TA4 PO; -LEVO750T40 PO; +METH10TA12 PO; -METH4PAK PO; -METH5TAB10 PO; +SEVE800T10 PO
[2025-06-04 08:59] LABS: Hematocrit 35.5 % (41.0-53.0); Hemoglobin 12.1 g/dL (13.5-17.5); Mean Corpuscular Hemoglobin 31.5 pg (28.0-32.0); Mean Corpuscular Volume 92.4 fL (80.0-100.0); Nucleated Red Blood Cells % 0.1 %
[2025-06-04 09:12] LABS: Chloride 102 mmol/L (98-107); Potassium 5.0 mmol/L (3.5-5.1); Sodium 141 mmol/L (136-145)
[2025-06-04 09:13] LABS: Anion Gap 10 (5-15); Calcium 9.8 mg/dL (8.7-10.4); Carbon Dioxide 29 mmol/L (20-31)
[2025-06-04 09:18] LABS: BUN/Creatinine Ratio 11.7 (10.0-20.0); Glucose 91 mg/dL (74-106)
[2025-06-04 09:19] LABS: Lactic Acid w/Reflex 2.6 mmol/L (0.4-2.0)
[2025-06-04 09:23] LABS: Blood Urea Nitrogen 50 mg/dL (9-23)
--- NOTE | 2025-06-04 10:02 | DVH ---
CLINICAL HISTORY: Eval for signs of volume overload. TECHNIQUE: Portable frontal view of the chest was obtained. COMPARISON: XY CHEST PORTABLE on DOS: 03/06/25. FINDINGS: LINES/TUBES: Right chest dual lumen dialysis catheter followed to the superior cavoatrial junction. PLEURA/LUNGS: Small right pleural effusion with atelectasis/possible consolidation of the right lower lobe. Left lung is clear. No left pleural effusion. No pneumothorax. MEDIASTINUM/OTHER: Normal heart size and mediastinal contours. Aortic atherosclerosis. Trachea is midline. BONES: No acute osseous abnormality. Degenerative changes of the thoracic spine and shoulders, which are incompletely assessed on this exam. Osseous structures are demineralized. IMPRESSION: Small right pleural effusion with atelectasis/possible consolidation of the right lower lobe.
--- NOTE | 2025-06-04 10:20 | ED.PDOC ---
History of Present Illness HPI Comments 65-year-old male with extensive medical history here today with the complaints of bilateral lower leg swelling and concern for cellulitis to his right lower leg. Patient states that he has a history of right lower leg cellulitis and states that this feels similar. No fevers, nausea, vomiting, diarrhea. No open wounds. States that he has been compliant with a his Lasix 20 mg daily. No other pain or symptoms. Chief Complaint: Lower Extremity Time Seen by MD: 08:05 Primary Care Provider: UNKNOWN Allergies: Coded Allergies: NO KNOWN ALLERGIES (Unverified , 01/19/19) Home Meds Active Scripts Doxycycline Monohydrate (Doxycycline Monohydrate) 100 Mg Cap, 1 CAP PO BID, #14 CAP Prov:CHET DOMINGUEZ MD 03/08/25 Phenazopyridine HCl (Phenazopyridine Hydrochol) 200 Mg Tab, 1 TAB PO TID for 3 Days, #9 TAB Prov:IVEYISATUALDA Q SCALE MODEL MAKER 06/18/23 Cephalexin Monohydrate (Cephalexin) 500 Mg Cap, 1 CAP PO QID for 10 Days, #40 CAP Prov:IVEYISATUALDA Q SCALE MODEL MAKER 06/18/23 Docusate Sodium (Colace) 100 Mg Cap, 100 MG PO BIDP PRN for 30 Days, #50 CAP Prov:NATIVIDAD NG MD 09/14/22 Ipratropium [place] (Ipratropium [place]) 0.02 % Luiza, 0.5 MG NEB Q4HPRN PRN, #120 ML Prov:FARSHAD FLETCHER MD 08/30/22 Albuterol Sulfate (Ventolin) 2.5 Mg/0.5 Ml Nb, 2.5 MG NEB Q4HPRN PRN, #120 INH Prov:FARSHAD FLETCHER MD 08/30/22 Albuterol Sulfate (VENTOLIN MDI) 90 Mcg Ih, 180 MCG IN TIDPRN PRN, #1 INH Prov:FARSHAD FLETCHER MD 08/30/22 Zinc Gluconate (ZINC) 100 Mg Tab, 100 MG PO DAILY, #10 TAB Prov:FIDELINA ARTEAGA MD 05/31/20 Famotidine (PEPCID TABLET) 20 Mg Tb, 1 TAB PO BID, #30 TAB Prov:FIDELINA ARTEAGA MD 05/31/20 Aspirin (Asa) 81 Mg Ch, 81 MG PO DAILY, #14 TAB.CHEW Prov:FIDELINA ARTEAGA MD 05/31/20 Cholecalciferol (D3) 2,000 Unit Cap, 2000 UNIT PO DAILY, #14 CAP Prov:FIDELINA ARTEAGA MD 05/31/20 Reported Medications Methadone Hcl (Methadone Hcl) 10 Mg Tab, 130 MG PO DAILY, TAB 03/06/25 Sevelamer Carbonate (Sevelamer Carbonate) 800 Mg Tab, 2 TAB PO TID 03/06/25 Furosemide (Furosemide) 40 Mg Tab, 1 TAB PO DAILY 03/06/25 Lisinopril (Lisinopril) 20 Mg Tab, 20 MG PO DAILY for 30 Days, MG 08/28/22 Hydrocodone-Acetaminophen ([place] 5/325MG) 1 Tab Tb, 1 TAB PO TID, #90 TAB 02/19/19 Mode of Arrival: Ambulatory Past Medical History PAST MEDICAL HISTORY: COPD, HTN Surgical History: Cholecystectomy, Hernia Repair Family History Family History: Reviewed,noncontributory to illness, Family hx of HTN Social History Smoker: Quit Less Than 1 Year Alcohol: Denies ETOH Use Drugs: Denies Drug Use Lives In: Home All Other Systems: Reviewed and Negative (Negative except as per HPI above) Physical Exam General Appearance: No Apparent Distress, Normal HEENT: Normal ENT Inspection, Pharynx Normal, TMs Normal Neck: Full Range of Motion, Non-Tender, Normal, Normal Inspection Respiratory: Chest Non-Tender, Lungs Clear, No Accessory Muscle Use, No Respiratory Distress, Normal Breath Sounds Cardiovascular: No JVD, No Murmur, No Gallop, Normal Peripheral Pulses, Regular Rate/Rhythm Breast Exam: Deferred Gastrointestinal: No Organomegaly, Non Tender, No Pulsatile Mass, Normal Bowel Sounds, Soft Genitalia: Deferred Pelvic: Deferred Rectal: Deferred Extremities: Normal capillary refill, Normal range of motion, Other (2+ bilateral lower extremity swelling with mild warmth throughout, mild tenderness to palpation throughout, no crepitus, no open wounds or discharge, chronic venous stasis changes makes it difficult to assess for erythema) Musculoskeletal : Apperance: Normal Neurologic: Alert, strategic planning director II-XII nml as Tested, No Motor Deficits, Normal Affect, Normal Mood, No Sensory Deficits Cerebellar Function: Normal Reflexes: Normal Skin: Dry, Normal Color, Warm Lymphatic: No Adenopathy Was a procedure done? Was a procedure done?: No EKG EKG : Pulse Rate (adult): 89 Cardiac Rhythm: NSR Comments No STEMI. No signs of ischemia. Differential Dx Considerations may include: Cellulitis, abscess, DVT, NSTI, SJS/TEN, osteomyelitis, bullous disorder, toxic shock syndrome/SSS X-Ray, Labs, Meds, VS Vital Signs Date Time Temp Pulse Resp B/P (MAP) Pulse Ox O2 Delivery O2 Flow Rate FiO2 06/04/25 08:40 84 19 99 Room Air 06/04/25 08:40 98.6 84 19 103/56 (72) 99 98.6 06/04/25 08:08 89 06/04/25 07:57 97.6 92 20 117/76 94 97.6 Lab Test 06/04/25 08:29 Range/Units White Blood Count 5.3 4.4-10.8 10^3/uL Red Blood Count 3.84 L 4.5-5.90 10^6/uL Hemoglobin 12.1 L 13.5-17.5 g/dL Hematocrit 35.5 L 41.0-53.0 % Mean Corpuscular Volume 92.4 80.0-100.0 fL Mean Corpuscular Hemoglobin 31.5 28.0-32.0 pg Mean Corpuscular Hemoglobin Concent 34.1 32.0-36.0 g/dL Red Cell Distribution Width 17.0 H 11.8-14.3 % Platelet Count 228 140-450 10^3/uL Mean Platelet Volume 8.6 6.9-10.8 fL Neutrophils (%) (Auto) 50.8 37.0-80.0 % Lymphocytes (%) (Auto) 39.2 10.0-50.0 % Monocytes (%) (Auto) 8.0 0.0-12.0 % Eosinophils (%) (Auto) 1.3 0.0-7.0 % Basophils (%) (Auto) 0.7 0.0-2.0 % Neutrophils # (Auto) 2.7 1.6-8.6 10 ^3/uL Lymphocytes # (Auto) 2.1 0.4-5.4 10 ^3/uL Monocytes # (Auto) 0.4 0-1.3 10 ^3/uL Eosinophils # (Auto) 0.1 0-0.8 10 ^3/uL Basophils # (Auto) 0 0-0.2 10 ^3/uL Nucleated Red Blood Cells 0.1 % Sodium Level 141 136-145 mmol/L Potassium Level 5.0 3.5-5.1 mmol/L Chloride Level 102 98-107 mmol/L Carbon Dioxide Level 29 20-31 mmol/L Anion Gap 10 5-15 Blood Urea Nitrogen 50 H 9-23 mg/dL Creatinine 4.27 H 0.700-1.30 mg/dL Glomerular Filtration Rate Calc 15 >90 mL/min BUN/Creatinine Ratio 11.7 10.0-20.0 Serum Glucose 91 74-106 mg/dL Lactic Acid Level 2.6 *H 0.4-2.0 mmol/L Calcium Level 9.8 8.7-10.4 mg/dL Troponin I High Sensitivity 3 L </=54 ng/L B-Type Natriuretic Peptide 15.46 0-100 pg/mL Lipase 25 12-53 U/L X-Ray, Labs, Meds, VS Comment 65-year-old male here today with a presentation consistent with a cellulitis and SAÚL on lab testing. Patient also with a an elevated lactic acid level. Patient does not meet sepsis criteria. Patient was started on IV antibiotics and given a small fluid bolus of 250 cc and will be admitted for further IV antibiotic therapy and evaluation of his SAÚL. Time of 1ST Reevaluation: 10:19 Reevaluation 1ST: Unchanged Patient Education/Counseling: Diagnosis, Treatment Family Education/Counseling: No Family Present SEPSIS Sepsis Screen Date sepsis recognized/suspect: Jun 04, 2025 Time Sepsis recognized/suspect: 0759 Recent Procedure: No On Antibiotic Therapy: No Respiratory Rate >20: No Heart Rate >90: Yes Temp<36 C (96.8 F) or >38.3 C: No SBP <90 or MAP <65 mmHG: No New Acute Mental Status Change: No Is the patient on CPAP, BIPAP,: No Physician Orders Blood Culture (06/04/25 08:05) Chest Xray 1 View (06/04/25 08:05) Electrocardigram (06/04/25 08:51) Ceftriaxone 1gm/50ml (Rocephin) (06/04/25 10:15) Sodium Chloride 0.9% (06/04/25 10:15) Vital Signs Date Time Temp Pulse Resp B/P (MAP) Pulse Ox O2 Delivery O2 Flow Rate FiO2 06/04/25 08:40 84 19 99 Room Air 06/04/25 08:40 98.6 84 19 103/56 (72) 99 98.6 06/04/25 08:08 89 06/04/25 07:57 97.6 92 20 117/76 94 97.6 Laboratory Tests Test 06/04/25 08:29 Lactic Acid Level 2.6 mmol/L (0.4-2.0) *H White Blood Count 5.3 10^3/uL (4.4-10.8) Departure 1 Departure Time of Disposition: 10:19 Impression: Primary Impression: Cellulitis Additional Impressions: SAÚL (acute kidney injury) History of cellulitis History of CHF (congestive heart failure) Disposition: ADMITTED INPATIENT Admit to: Med Surg Condition: Stable Critical Care Note Critical Care Time?: Yes (30 min-critical care time only) Stability Stability form required: No Heart Score Heart Score: Heart Score Response (Comments) Value History N/A 0 EKG N/A 0 Age N/A 0 Risk Factors N/A 0 Troponin N/A 0 Total 0 GLORIA DAILY MD Jun 04, 2025 10:20
[2025-06-04] MEDS: SODIUM CHLORIDE 0.9% 250 ML IV ONE (10:52)
[2025-06-04] MEDS ORDERED: ONDANSETRON HCL 4 MG/2 ML VIAL IV PRN (12:15)
[2025-06-04] MEDS ORDERED: ACETAMINOPHEN 325 MG TAB PO PRN (12:15)
[2025-06-04] MEDS ORDERED: HYDROcodone-ACET 5/325MG TAB PO PRN (12:15)
[2025-06-04] MEDS ORDERED: METH10TA12 PO (12:29)
--- NOTE | 2025-06-04 13:21 | DVHHP2 ---
History of Present Illness Reason for Visit: Bilateral leg swelling History of Present Illness Gregorio Neff is a 65-year-old male with past medical history of ESRD on HD, COPD, hypertension, chronic pain on methadone, and neuropathy, who came to the hospital for bilateral lower extremity swelling. Patient has a history of bi lateral lower extremity swelling and cellulitis. He states this seems like cellulitis like he has had before prompting him to come to the hospital. He states the swelling started about 5 days ago. He thought hemodialysis would help, but it continued to worsen. Cardiovascular: HTN Pulmonary: COPD HE[employer] MANAGER: Periperal neuropathy Musculoskeletal: Chronic low back pain (on Methadone) Past Surgical History: Cholecystectomy, Hernia Repair, Other (SBO repair), Tonsillectomy Smoke: No ALCOHOL: none Drugs: None Lives: with Family Domestic Violence: Neg Review of Systems Constitutional: No: Fever, Chills, Sweats, Weakness, Malaise, Other Eyes: No: Pain, Vision change, Conjunctivae inflammation, Eyelid inflammation, Other, Redness ENT: No: Ear pain, Ear discharge, Nose pain, Nose discharge, Nose congestion, Mouth pain, Mouth swelling, Throat pain, Throat swelling, Other Respiratory: No: Cough, Dry, Shortness of breath, SOB with excertion, Wheezing, Hemoptysis, Pleuritic Pain, Sputum, Wheezing, Other Cardiovascular: Edema (bilateral lower extremities); No: Chest Pain, Palpitations, Orthopnea, Paroxysmal Noc. Dyspnea, Lt Headedness, Other Gastrointestinal: No: Nausea, Vomiting, Abdominal Pain, Diarrhea, Constipation, Melena, Hematochezia, Other Genitourinary: No Dysuria, No Frequency, No Incontinence, No Hematuria, No Retention, No Other Musculoskeletal: leg pain (bilateral); No: other, neck pain, shoulder pain, arm pain, back pain, hand pain, foot pain Skin: No: Rash, Lesions, Jaundice, Bruising, Other Neurological: No: Weakness, Numbness, Incoordination, Change in speech, Confusion, Seizures, Other Allergies: Coded Allergies: NO KNOWN ALLERGIES (Unverified , 01/19/19) Medications Current Medications Medications Dose Ordered Sig/Satish Route Start Time Stop Time Status Last Admin Dose Admin Sodium Chloride 10 ml Q8HR IV 06/04/25 14:00 UNV Acetaminophen/ Hydrocodone Bitart 1 tab Q4HP PRN PO 06/04/25 12:15 UNV Ondansetron HCl 4 mg Q4HP PRN IV 06/04/25 12:15 UNV Docusate Sodium 100 mg BIDPRN PRN PO 06/04/25 12:15 UNV Acetaminophen 650 mg Q6HP PRN PO 06/04/25 12:15 UNV Lisinopril 20 mg DAILY PO 06/05/25 10:00 UNV Patient Own Medication 2 tab TID PO 06/04/25 14:00 UNV Methadone HCl 97 mg DAILY PO 06/05/25 10:00 UNV Exam Vital Signs Vital Signs Date Time Temp Pulse Resp B/P (MAP) Pulse Ox O2 Delivery O2 Flow Rate FiO2 06/04/25 10:49 97.7 74 18 103/51 (68) 100 97.7 06/04/25 08:40 Room Air General Appearance: Alert, Oriented X3, Cooperative, mild distress HEENT: Atraumatic, PERRLA Respiratory: Clear to auscultation, Normal air movement Cardiovascular: Regular rate, Normal S1 Abdominal: Normal bowel sounds, Soft, No tenderness, No hepatospenomegaly Extremities: No clubbing, No cyanosis, No edema, Normal pulses, No tenderness/swelling Skin: No rashes, No breakdown, No significant lesion Neuro: Normal gait, Normal speech, Strength at 5/5 X4 ext Psych/Mental Status: Mental status NL Labs/Xrays Labs Test 06/04/25 10:55 06/04/25 08:29 Range/Units Lactic Acid Level 1.5 0.4-2.0 mmol/L White Blood Count 5.3 4.4-10.8 10^3/uL Red Blood Count 3.84 L 4.5-5.90 10^6/uL Hemoglobin 12.1 L 13.5-17.5 g/dL Hematocrit 35.5 L 41.0-53.0 % Mean Corpuscular Volume 92.4 80.0-100.0 fL Mean Corpuscular Hemoglobin 31.5 28.0-32.0 pg Mean Corpuscular Hemoglobin Concent 34.1 32.0-36.0 g/dL Red Cell Distribution Width 17.0 H 11.8-14.3 % Platelet Count 228 140-450 10^3/uL Mean Platelet Volume 8.6 6.9-10.8 fL Neutrophils (%) (Auto) 50.8 37.0-80.0 % Lymphocytes (%) (Auto) 39.2 10.0-50.0 % Monocytes (%) (Auto) 8.0 0.0-12.0 % Eosinophils (%) (Auto) 1.3 0.0-7.0 % Basophils (%) (Auto) 0.7 0.0-2.0 % Neutrophils # (Auto) 2.7 1.6-8.6 10 ^3/uL Lymphocytes # (Auto) 2.1 0.4-5.4 10 ^3/uL Monocytes # (Auto) 0.4 0-1.3 10 ^3/uL Eosinophils # (Auto) 0.1 0-0.8 10 ^3/uL Basophils # (Auto) 0 0-0.2 10 ^3/uL Nucleated Red Blood Cells 0.1 % Sodium Level 141 136-145 mmol/L Potassium Level 5.0 3.5-5.1 mmol/L Chloride Level 102 98-107 mmol/L Carbon Dioxide Level 29 20-31 mmol/L Anion Gap 10 5-15 Blood Urea Nitrogen 50 H 9-23 mg/dL Creatinine 4.27 H 0.700-1.30 mg/dL Glomerular Filtration Rate Calc 15 >90 mL/min BUN/Creatinine Ratio 11.7 10.0-20.0 Serum Glucose 91 74-106 mg/dL Calcium Level 9.8 8.7-10.4 mg/dL Troponin I High Sensitivity 3 L </=54 ng/L B-Type Natriuretic Peptide 15.46 0-100 pg/mL Lipase 25 12-53 U/L XY CHEST FINDINGS: LINES/TUBES: Right chest dual lumen dialysis catheter followed to the superior cavoatrial junction. PLEURA/LUNGS: Small right pleural effusion with atelectasis/possible consolidation of the right lower lobe. Left lung is clear. No left pleural effusion. No pneumothorax. MEDIASTINUM/OTHER: Normal heart size and mediastinal contours. Aortic atherosclerosis. Trachea is midline. BONES: No acute osseous abnormality. Degenerative changes of the thoracic spine and shoulders, which are incompletely assessed on this exam. Osseous structures are demineralized. IMPRESSION: Small right pleural effusion with atelectasis/possible consolidation of the right lower lobe. SEPSIS Sepsis Screen Date sepsis recognized/suspect: Jun 04, 2025 Time Sepsis recognized/suspect: 0759 Recent Procedure: No On Antibiotic Therapy: No Respiratory Rate >20: No Heart Rate >90: Yes Temp<36 C (96.8 F) or >38.3 C: No SBP <90 or MAP <65 mmHG: No New Acute Mental Status Change: No Is the patient on CPAP, BIPAP,: No Physician Orders Blood Culture (06/04/25 08:05) Chest Xray 1 View (06/04/25 08:05) Electrocardigram (06/04/25 08:51) Admit (06/04/25 12:13) Code Status (06/04/25 12:13) Renal Standard(2gna,3gk,Lopho) (06/04/25 Lunch) Sodium Chloride Lock (Saline Lock Ns) (06/04/25 14:00) Hydrocodone-Acet 5/325mg Tab ([place] 5/32 (06/04/25 12:15) Ondansetron Hcl (Zofran) (06/04/25 12:15) Docusate Sodium Capsule (Colace Capsule) (06/04/25 12:15) Complete Blood Count (06/05/25 04:00) Comprehensive Metabolic Panel (06/05/25 04:00) Condition: Serious (06/04/25 12:13) Acetaminophen Tablet (Tylenol Tablet) (06/04/25 12:15) *Dr[facility] Topete [facility] (06/04/25 12:13) Lisinopril Tablet (Zestril Tablet) (06/05/25 10:00) (Nf) Sevelamer Carbonate (06/04/25 14:00) Methadone Hcl Tablet (Methadone Hcl Tabl (06/05/25 10:00) Vital Signs Date Time Temp Pulse Resp B/P (MAP) Pulse Ox O2 Delivery O2 Flow Rate FiO2 06/04/25 10:49 97.7 74 18 103/51 (68) 100 97.7 06/04/25 10:20 89 06/04/25 08:40 84 19 99 Room Air 06/04/25 08:40 98.6 84 19 103/56 (72) 99 98.6 06/04/25 08:08 89 06/04/25 07:57 97.6 92 20 117/76 94 97.6 Laboratory Tests Test 06/04/25 08:29 06/04/25 10:55 Lactic Acid Level 2.6 mmol/L (0.4-2.0) *H 1.5 mmol/L (0.4-2.0) White Blood Count 5.3 10^3/uL (4.4-10.8) Medications Medications Dose Ordered Sig/Satish Route Start Time Stop Time Status Last Admin Dose Admin Ceftriaxone Sodium 50 ml @ 100 mls/hr ONCE ONCE IV 06/04/25 10:15 06/04/25 10:44 DC 06/04/25 10:52 100 MLS/HR Sodium Chloride 250 ml @ 1,000 mls/hr Q15M ONCE IV 06/04/25 10:15 06/04/25 10:29 DC 06/04/25 10:52 1,000 MLS/HR Assessment/Plan Assessment/Plan Assessment: Bilateral lower leg cellulitis, ESRD on HD, COPD, Hypertension, Plan: Admit to Med-Surg, Nephrology consult, IV antibiotics, Fluid restriction, Daily weight, Strict I&O's, Breathing treatments as needed, Home medications reconciled, Plan discussed with: Patient My Orders Orders - SILVER BUSTAMANTE Procedure Category Date Status Time Admit ADMIT 06/04/25 Transmitted 12:13 Code Status CODE 06/04/25 Transmitted 12:13 Renal DIET 06/04/25 Transmitted Standard(2gna,3gk,Lopho) Lunch Sodium Chloride Lock PHA 06/04/25 Logged (Saline Lock Ns) 14:00 Hydrocodone-Acet PHA 06/04/25 Logged 5/325mg Tab ([place] 12:15 Ondansetron Hcl PHA 06/04/25 Logged (Zofran) 12:15 Docusate Sodium PHA 06/04/25 Logged Capsule (Colace 12:15 Complete Blood Count LAB 06/05/25 Verified 04:00 Comprehensive LAB 06/05/25 Verified Metabolic Panel 04:00 Condition: Serious KIM 06/04/25 In Process 12:13 Acetaminophen Tablet PHA 06/04/25 Logged (Tylenol Tablet) 12:15 *Dr. Topete [facility] CONS 06/04/25 Transmitted -[place] 12:13 Lisinopril Tablet PHA 06/05/25 Logged (Zestril Tablet) 10:00 (Nf) Sevelamer PHA 06/04/25 Logged Carbonate 14:00 Methadone Hcl Tablet PHA 06/05/25 Logged (Methadone Hcl Tabl 10:00 Date of Service: Jun 04, 2025 Billing Provider: SILVER BUSTAMANTE Common Visit Codes: [id number] INP/OBS CARE (MOD) SILVER BUSTAMANTE Jun 04, 2025 13:21
[2025-06-04] MEDS: SODIUM CHLOR 0.9% PF (SALINE LOCK) 10ML VIAL/SYR IV SCH (14:00)
[2025-06-04] MEDS: SEVELAMER 800 MG TAB PO SCH (19:50)
[2025-06-04] MEDS: CLINDAMYCIN 600MG IV 50 ML IV SCH (19:50)
[2025-06-04 23:00] VITALS: BP 97/50; PULSE 83; RESP 20; TEMP 97.6; O2SAT 96
[2025-06-05] VITALS (10 sets, daily range): BP systolic 75–113; BP diastolic 33–64; PULSE 72–88; RESP 16–20; TEMP 97.6–98.5; O2SAT 91–97
[2025-06-05] MEDS ORDERED: ALPR0.5T PO (05:06)
[2025-06-05 06:17] LABS: Hematocrit 34.7 % (41.0-53.0); Hemoglobin 11.6 g/dL (13.5-17.5); Mean Corpuscular Hemoglobin 31.8 pg (28.0-32.0); Mean Corpuscular Volume 95.4 fL (80.0-100.0); Nucleated Red Blood Cells % 0.1 %
[2025-06-05 06:28] LABS: Alanine Aminotransferase 22 U/L (7-40); Albumin 3.4 g/dL (3.2-4.8); Anion Gap 10 (5-15); BUN/Creatinine Ratio 12.6 (10.0-20.0); Calcium 8.9 mg/dL (8.7-10.4); Carbon Dioxide 27 mmol/L (20-31); Chloride 105 mmol/L (98-107); Glucose 81 mg/dL (74-106); Potassium 5.0 mmol/L (3.5-5.1); Sodium 142 mmol/L (136-145); Total Protein 6.4 g/dL (5.7-8.2)
[2025-06-05 06:29] LABS: Alkaline Phosphatase 136 U/L (46-116); Bilirubin, Total < 0.2 mg/dL (0.2-1.0); Blood Urea Nitrogen 58 mg/dL (9-23)
[2025-06-05] MEDS: LISINOPRIL 20 MG TAB PO SCH (09:52)
[2025-06-05] MEDS ORDERED: METHADONE HCL 10 MG TAB PO SCH (10:00)
[2025-06-05] MEDS: METHADONE HCL 10 MG TAB PO ONE (12:07)
--- NOTE | 2025-06-05 16:26 | ECG ---
[facility] Test Date: 2025-06-04 Test Time: 08:08:48 Pat Name: KLAUDIA DUNN Department: ED Room: 0288 Gender: M Drapery Hemmer Automatic: STUDENT : 1960 Requested By: GLORIA DAILY Order Number: [id number] Reading MD: aGel Muñoz Measurements Intervals [place] Rate: 89 P: 65 NC: 181 QRS: 62 QRSD: 99 T: 24 QT: 368 QTc: 448 Interpretive Statements Sinus rhythm Low voltage, precordial leads Electronically Signed On 06-06-2025 19:27:39 PST by Gael Muñoz Please click the below link to view image of tracing.
--- NOTE | 2025-06-05 17:34 | DVHPN2 ---
Subjective LE swelling Reviewed: H&P Changes from previous H/P or p: No Changes Eyes: No Pain, No Vision change, No Conjunctivae inflammation, No Eyelid inflammation, No Other, No Redness ENT: No Ear pain, No Ear discharge, No Nose pain, No Nose discharge, No Nose congestion, No Mouth pain, No Mouth swelling, No Throat pain, No Throat swelling, No Other Cardiovascular: No Chest Pain, No Palpitations, No Orthopnea, No Paroxysmal Noc. Dyspnea; Edema (bilateral lower extremities); No Lt Headedness, No Other Respiratory: No Cough, No Dry, No Shortness of breath, No SOB with excertion, No Wheezing, No Hemoptysis, No Pleuritic Pain, No Sputum, No Other Gastrointestinal: No Nausea, No Vomiting, No Abdominal Pain, No Diarrhea, No Constipation, No Melena, No Hematochezia, No Other Genitourinary: No Dysuria, No Frequency, No Incontinence, No Hematuria, No Retention, No Other Musculoskeletal: No other, No neck pain, No shoulder pain, No arm pain, No back pain, No hand pain; leg pain (bilateral); No foot pain Skin: No Rash, No Lesions, No Jaundice, No Bruising, No Other Objective Vitals Vital Signs Date Time Temp Pulse Resp B/P (MAP) Pulse Ox O2 Delivery O2 Flow Rate FiO2 06/05/25 13:00 97.6 83 16 98/44 (62) 96 97.6 06/05/25 05:06 Room Air* 0 21 Intake/Output Intake and Output 06/05/25 05:00 Intake Total 118 ml Balance 118 ml Intake Oral 118 ml General Appearance: Alert, Oriented X3 Lungs: Clear to auscultation Cardiovascular: Regular rate, Normal S1, Normal S2 Abdomen: Normal bowel sounds Musculoskeletal: Other (LE celluliitis with redness and venous stasis changes) Medications Current Medications Medications Dose Ordered Sig/Satish Route Start Time Stop Time Status Last Admin Dose Admin Sodium Chloride 10 ml Q8HR IV 06/04/25 14:00 06/05/25 14:00 10 ML Acetaminophen/ Hydrocodone Bitart 1 tab Q4HP PRN PO 06/04/25 12:15 Ondansetron HCl 4 mg Q4HP PRN IV 06/04/25 12:15 Docusate Sodium 100 mg BIDPRN PRN PO 06/04/25 12:15 Acetaminophen 650 mg Q6HP PRN PO 06/04/25 12:15 Lisinopril 20 mg DAILY PO 06/05/25 10:00 Sevelamer HCl 800 mg TIDWM PO 06/04/25 18:00 06/05/25 12:22 800 MG Clindamycin Phosphate 50 ml @ 50 mls/hr Q8HR IV 06/04/25 14:00 06/04/25 19:50 50 MLS/HR Methadone HCl 100 mg DAILY PO 06/06/25 10:00 Laboratory Results Laboratory Tests 06/05/25 05:12 Chemistry Test 06/05/25 05:12 Albumin 3.4 g/dL (3.2-4.8) Calcium Level 8.9 mg/dL (8.7-10.4) Total Protein 6.4 g/dL (5.7-8.2) LFT Test 06/05/25 05:12 Alanine Aminotransferase (ALT) 22 U/L (7-40) Alkaline Phosphatase 136 U/L (46-116) H Aspartate Amino Transferase (AST) 22 U/L (13-40) Total Bilirubin < 0.2 mg/dL (0.2-1.0) L Microbiology Microbiology Date/Time Source Procedure Growth Status 06/04/25 08:38 Blood Blood Culture - Preliminary NO GROWTH AFTER 24 HOURS OF INCUBATION. Resulted Assessment/Plan Assessment/Plan Bilateral lower leg cellulitis, ESRD on HD, COPD, Hypertension, IV abx Nephrology for HD Plan discussed with: Patient My Orders Orders - REGINA HENLEY MD Procedure Category Date Status Time Methadone Hcl Tablet PHA 06/06/25 In Process (Methadone Hcl Tabl 10:00 Date of Service: Jun 05, 2025 Billing Provider: REGINA HENLEY MD Common Visit Codes: [id number] INP/OBS CARE(HIGH) REGINA HENLEY MD Jun 05, 2025 17:34
[2025-06-05] MEDS: TEMAZEPAM 15 MG CAP PO ONE (21:15)
[2025-06-06] VITALS (8 sets, daily range): BP systolic 96–156; BP diastolic 53–91; PULSE 65–78; RESP 14–20; TEMP 97.6–98.3; O2SAT 96–99
[2025-06-06] MEDS ORDERED: SODIUM CHL 0.9% 1000 ML BAG XX ONE (07:00)
[2025-06-06] MEDS: DOCUSATE SOD 100 MG CAP PO PRN (09:34)
[2025-06-06] MEDS: METHADONE HCL 10 MG TAB PO SCH (09:35)
[2025-06-06] MEDS ORDERED: DOXY-286 PO (11:56)
--- NOTE | 2025-06-06 18:07 | DVHINCON2 ---
Date of service: Jun 06, [address] Kirby Reason for Consultation ESRD History of Present Illness Mr. Neff is a 65-year-old male with known history of ESRD who presented for further evaluation and management of skin soft tissue infection of bilateral lower extremities. He was seen in his room this morning awake alert conversant and in no acute distress. He states that he has approximately 1-2 ER visits a year due to cellulitis of lower extremities. He currently denies fever, chills, nausea or vomiting. Past Medical History ESRD Hypertension Obesity Allergies: Coded Allergies: NO KNOWN ALLERGIES (Unverified , 01/19/19) Home Meds Active Scripts Doxycycline Hyclate (DOXYCYCLINE HYCLATE) 100 Mg Tab, 1 TAB PO BID for 10 Days, #20 TAB Prov:REGINA KIRBY MD 06/06/25 Reported Medications Alprazolam (Xanax) 0.5 Mg Tb, 1 TAB PO DAILY, #30 TAB 06/05/25 Methadone Hcl (Methadone Hcl) 10 Mg Tab, 97 MG PO DAILY, TAB 06/04/25 Sevelamer Carbonate (Sevelamer Carbonate) 800 Mg Tab, 2 TAB PO TID 03/06/25 Furosemide (Furosemide) 40 Mg Tab, 1 TAB PO DAILY 03/06/25 Lisinopril (Lisinopril) 20 Mg Tab, 20 MG PO DAILY for 30 Days, MG 08/28/22 Hydrocodone-Acetaminophen ([place] 5/325MG) 1 Tab Tb, 1 TAB PO TID, #90 TAB 02/19/19 Discontinued Reported Medications Methadone Hcl (Methadone Hcl) 10 Mg Tab, 130 MG PO DAILY, TAB 03/06/25 Current Medications Current Medications Medications (Trade) Dose Ordered Sig/Satish Route PRN Reason Start Time Stop Time Status Last Admin Methadone HCl (Methadone HCl Tablet) 100 mg DAILY PO 06/06/25 10:00 06/06/25 09:35 Family History: Cerebrovascular accident (CVA) G8 FATHER Disorder of brain G8 MOTHER Review of Systems Denies gross hematuria, dysuria, tea or Coca-Cola colored urine Denies excessive use of recent NSAIDs, foamy urine, recent IV contrast studies Denies recent chest pain, dyspnea, PND, orthopnea Denies fever, chills, nausea, vomiting, diarrhea Denies unintentional weight loss, night sweats Denies focal weakness, numbness H&P Exam Vital Signs/I&O Vital Sign Date Time Temp Pulse Resp B/P (MAP) Pulse Ox O2 Delivery O2 Flow Rate FiO2 06/06/25 16:53 97.8 72 18 96/58 (71) 97 97.8 06/06/25 08:00 Room Air* 0 21 Intake and Output 06/05/25 06/06/25 19:00 07:00 Intake Total 600 ml 150 ml Output Total 850 ml 800 ml Balance -250 ml -650 ml Intake Oral 600 ml 100 ml IV Total 50 ml Output Urine Total 850 ml 800 ml Physical Exam Gen: nad heent: nc/at, mmm lungs: cta anteriorly cvs: no rub abd: soft, bowel sounds audible ext: + edema skin: no rash neuro: alert and oriented Labs/Diagnostic Data Labs/Diagnostic Data Laboratory Tests Test 06/06/25 13:44 06/05/25 05:12 06/04/25 10:55 06/04/25 08:29 Range/Units Hepatitis B Surface Antigen Negative Negative White Blood Count 5.2 5.3 4.4-10.8 10^3/uL Red Blood Count 3.63 L 3.84 L 4.5-5.90 10^6/uL Hemoglobin 11.6 L 12.1 L 13.5-17.5 g/dL Hematocrit 34.7 L 35.5 L 41.0-53.0 % Mean Corpuscular Volume 95.4 92.4 80.0-100.0 fL Mean Corpuscular Hemoglobin 31.8 31.5 28.0-32.0 pg Mean Corpuscular Hemoglobin Concent 33.3 34.1 32.0-36.0 g/dL Red Cell Distribution Width 16.9 H 17.0 H 11.8-14.3 % Platelet Count 204 228 140-450 10^3/uL Mean Platelet Volume 8.8 8.6 6.9-10.8 fL Neutrophils (%) (Auto) 45.9 50.8 37.0-80.0 % Lymphocytes (%) (Auto) 40.0 39.2 10.0-50.0 % Monocytes (%) (Auto) 11.3 8.0 0.0-12.0 % Eosinophils (%) (Auto) 2.2 1.3 0.0-7.0 % Basophils (%) (Auto) 0.6 0.7 0.0-2.0 % Neutrophils # (Auto) 2.4 2.7 1.6-8.6 10 ^3/uL Lymphocytes # (Auto) 2.1 2.1 0.4-5.4 10 ^3/uL Monocytes # (Auto) 0.6 0.4 0-1.3 10 ^3/uL Eosinophils # (Auto) 0.1 0.1 0-0.8 10 ^3/uL Basophils # (Auto) 0 0 0-0.2 10 ^3/uL Nucleated Red Blood Cells 0.1 0.1 % Sodium Level 142 141 136-145 mmol/L Potassium Level 5.0 5.0 3.5-5.1 mmol/L Chloride Level 105 102 98-107 mmol/L Carbon Dioxide Level 27 29 20-31 mmol/L Anion Gap 10 10 5-15 Blood Urea Nitrogen 58 H 50 H 9-23 mg/dL Creatinine 4.60 H 4.27 H 0.700-1.30 mg/dL Glomerular Filtration Rate Calc 13 15 >90 mL/min BUN/Creatinine Ratio 12.6 11.7 10.0-20.0 Serum Glucose 81 91 74-106 mg/dL Calcium Level 8.9 9.8 8.7-10.4 mg/dL Total Bilirubin < 0.2 L 0.2-1.0 mg/dL Aspartate Amino Transferase (AST) 22 13-40 U/L Alanine Aminotransferase (ALT) 22 7-40 U/L Alkaline Phosphatase 136 H 46-116 U/L Total Protein 6.4 5.7-8.2 g/dL Albumin 3.4 3.2-4.8 g/dL Lactic Acid Level 1.5 2.6 *H 0.4-2.0 mmol/L Troponin I High Sensitivity 3 L </=54 ng/L B-Type Natriuretic Peptide 15.46 0-100 pg/mL Lipase 25 12-53 U/L Assessment IMP: 1) ESRD on dialysis 2) cellulitis lower extremity 3) obesity 4) anemia REC: - dialysis today - noted plans for discharge - discussed with patient earlier today regarding continued Outpatient dialysis per his regular schedule. Plan discussed with: Patient NATAN AKERS MD Jun 06, 2025 18:07
== END 2025-06-06 21:07 | disposition home or self-care (01) | DRG 602 ==
LOC: ER 07:55 → OVERFLOW 12:13 → WEST WING 06-05 19:37
PROVIDERS: ADMIT Hospitalist; ATTEND Hospitalist
PROC: 5A1D70Z Performance of Urinary Filtration, Intermittent, Less than 6 Hours Per Day (ICD-10-PCS; principal; 2025-06-06)
DX: L03.115 Cellulitis of right lower limb (principal); N18.6 End stage renal disease; I13.2 Hypertensive heart and chronic kidney disease with heart failure and with stage 5 chronic kidney disease, or end stage renal disease; N17.9 Acute kidney failure, unspecified; Z99.2 Dependence on renal dialysis; L03.116 Cellulitis of left lower limb; J44.9 Chronic obstructive pulmonary disease, unspecified; D64.9 Anemia, unspecified; E66.9 Obesity, unspecified; G62.9 Polyneuropathy, unspecified; G89.29 Other chronic pain; Z90.49 Acquired absence of other specified parts of digestive tract; Z79.899 Other long term (current) drug therapy; Z87.891 Personal history of nicotine dependence; Z82.3 Family history of stroke; Z79.891 Long term (current) use of opiate analgesic; Z68.35 Body mass index [BMI] 35.0-35.9, adult
CPT/HCPCS: 36415; 71045; 80048; 80053; 83605; 83690; 83880; 84484; 85025; 87040; 87340; 90935; 93005; 99291; G0378; J3490